=== PATIENT | female | born 1950 | race Caucasian/White ===

== ENCOUNTER 2022-11-27 11:19 | Outpatient (OUT) | payer MEDICARE, SELFPAY ==
--- NOTE | 2022-11-27 11:21 | MM_ITS ---
Patient: DANNY GARCIA Exam Date: 11/27/2022 : 1950 Gender:F Ordering : [facility] Admission #: [id number] Family : Order #: [id number] CLICK HERE TO VIEW EXAM RADIOLOGY REPORT PROCEDURE: MM TOMOSYNTHESIS SCREENING BI COMPARISON: MG MAMM SCREEN 3D JONY CAD, 03/21/2021. MG MAMM SCREEN JONY W CAD, 03/15/2020. MG MAMM SCREEN JONY W CAD, 08/07/2018. MG MAMM SCREEN JONY W CAD, 12/18/2016. INDICATIONS: Screening mammogram Z12.31 Calculator Name NCI Breast Cancer Risk Assessment Tool 5 Year Breast Cancer Risk 2.90% Lifetime Breast Cancer Risk 7.50% Personal Breast Cancer No Personal Ovarian Cancer No Treatments None Family Cancers Grandfather-maternal with lung cancer at age 62. LOCATION: [facility] BREAST COMPOSITION: Scattered areas fibroglandular density. FINDINGS: DIAGNOSTIC CATEGORY 0--INCOMPLETE: NEED ADDITIONAL IMAGING EVALUATION. RIGHT BREAST: No significant suspicious finding. No significant change has occurred. LEFT BREAST: 1.0 cm macrolobular mass within the posterior upper inner quadrant, approximately 9 o'clock. This is stable compared to 202, but has been slowly increasing since 2017. While this favors benign etiology, given its slow increase in size, ultrasound evaluation should be considered for further evaluation. RECOMMENDATIONS: ULTRASOUND: LEFT BREAST PLEASE NOTE: A NORMAL MAMMOGRAM DOES NOT EXCLUDE THE POSSIBILITY OF BREAST CANCER. A CLINICALLY SUSPICIOUS PALPABLE LUMP SHOULD BE BIOPSIED. Dictated by: Som Barnes M.D. on 11/27/2022 at 13:53 Approved by: Som Barnes M.D. on 11/27/2022 at 13:59
== END 2022-11-27 11:20 | disposition home or self-care (01) ==
LOC: MAMMO 11:19
PROVIDERS: PCP Nurse Practitioner Family; Visit Provider Nurse Practitioner Family
DX: Z12.31 Encounter for screening mammogram for malignant neoplasm of breast (principal); Z80.1 Family history of malignant neoplasm of trachea, bronchus and lung; R92.8 Other abnormal and inconclusive findings on diagnostic imaging of breast
CPT/HCPCS: 77063; 77067

== ENCOUNTER 2022-12-10 07:23 | Outpatient (OUT) | payer MEDICARE, SELFPAY ==
--- NOTE | 2022-12-10 08:24 | CA_ITS ---
Patient: DANNY GARCIA Exam Date: 12/10/2022 : 1950 Gender:F Ordering : FUNMI BURNS Admission #: [id number] Family : Order #: [id number] CLICK HERE TO VIEW EXAM ECHOCARDIOGRAM REPORT PROCEDURE: CA ECHO DOPPLER COMPLETE INDICATIONS: Shortness of breath COMPARISON: None. DESCRIPTION: COMPLETE ECHOCARDIOGRAM Real-time transthoracic echocardiography with 2D, M-mode, spectral and color flow Doppler performed. QUALITY: Technical quality was good. LEFT VENTRICLE: Normal chamber size. Mild concentric left ventricular hypertrophy. Global left ventricular systolic function is normal. LV EF: Estimated left ventricular ejection fraction is 55%. DIASTOLIC: Normal diastolic function. ATRIAL SEPTUM: LEFT ATRIUM: Normal chamber size. RIGHT ATRIUM: Normal chamber size. RIGHT VENTRICLE: Normal chamber size. Normal right ventricular systolic function. TRICUSPID VALVE: Normal mobility and thickness. No stenosis with trivial regurgitation. No evidence of pulmonary hypertension. RVSP 28 mmHg MITRAL VALVE: Normal mobility and thickness. No evidence of mitral valve stenosis. Mild mitral annular calcification. No mitral regurgitation. AORTIC VALVE: Normal trileaflet appearance. Thickened aortic valve. Normal leaflet mobility. No evidence of aortic valve stenosis. No aortic regurgitation. AORTIC ROOT: Normal diameter and appearance. PULMONIC VALVE: Normal thickness and mobility. No stenosis. Mild regurgitation. PERICARDIUM: No evidence of pericardial effusion. IVC: Collapses with inspirations. Normal size. PLEURA: CONCLUSION: 1. Mild concentric left ventricular hypertrophy with normal systolic function. LVEF is 55%. 2. Normal right ventricular size and systolic function. 3. Normal diastolic function. 4. No significant valvular dysfunction. 5. Normal right sided pressures. Adult Echocardiography Procedure Report Left Ventricle LVEDD (3.7 - 5.6 cm): 3.77 cm LVESD (2.2 - 4.0 cm): 2.70 cm LVIVS thickness (0.6 - 1.2 cm): 1.16 cm LVPW thickness (0.5 - 1.0 cm): 1.35 cm e': 0.06 m/s E - e': 8.81 LVOT Max Gradient: 2.70 mm[Hg] LVOT Area (cm2): 0.82 m/s Peak Velocity (LVOT): 0.82 m/s Mean Velocity (LVOT): 0.57 m/s LVOT Diameter 1.86 cm Left Ventricular Ejection Fraction: 55 % Left Atrium LA Volume Index (2D A2C): 30.58 ml/m2 Left Atrium Systolic Dimension: 3.78 cm Mitral Valve MV E to A Ratio: 0.75 Mitral Valve A-Wave Peak Velocity: 0.76 m/s Mitral Valve E-Wave Peak Velocity: 0.57 m/s Right Ventricle RV Internal Diastolic Dimension: 3.15 cm Aorta AO Root Diam: 2.97 cm Ascending Ao Diam: 2.90 cm Aortic Valve AoV Area (Peak Marek): 1.73 cm2, 1.73 cm2 AoV Area (VTI): 1.78 cm2, 1.78 cm2 Peak Velocity(Antegrade Flow): 1.29 m/s Peak Gradient(Antegrade Flow): 6.64 mm[Hg] Mean Velocity(Antegrade Flow): 0.89 m/s Mean Gradient(Antegrade Flow): 3.61 mm[Hg] Velocity Time Integral: 32.73 cm Tricuspid Valve Peak Velocity (Regurgitant Flow): 2.45 m/s, 2.51 m/s Pulmonic Valve Mean Gradient: 1.38 mm[Hg], 2.11 mm[Hg] Mean Velocity: 0.54 m/s, 0.68 m/s Peak Velocity: 0.95 m/s Peak Gradient: 2.90 mm[Hg], 4.39 mm[Hg] Right Atrium Right Atrium Systolic Pressure: 40.16 ml, 40.16 ml Dictated by: Frankie Mcwilliams M.D. on 12/11/2022 at 18:11 Approved by: Frankie Mcwilliams M.D. on 12/11/2022 at 18:16
== END 2022-12-10 07:24 | disposition home or self-care (01) ==
LOC: CARD 07:23
PROVIDERS: PCP Nurse Practitioner Family; Visit Provider Internal Medicine Cardiovascular Disease
DX: R06.02 Shortness of breath (principal)
CPT/HCPCS: 93306

== ENCOUNTER 2022-12-10 08:57 | Outpatient (OUT) | payer MEDICARE, SELFPAY ==
--- NOTE | 2022-12-10 09:03 | US_ITS ---
Patient: DANNY GARCIA Exam Date: 12/10/2022 : 1950 Gender:F Ordering : AARON PERR[facility] Admission #: [id number] Family : Order #: [id number] CLICK HERE TO VIEW EXAM RADIOLOGY REPORT PROCEDURE: US BREAST LT LIMITED COMPARISON: MG MAMM SCREEN JONY W CAD, 03/15/2020. MG MAMM SCREEN JONY W CAD, 08/07/2018. MG MAMM SCREEN 3D JONY CAD, 03/21/2021. MG MAMM SCREEN JONY W CAD, 12/18/2016. MM TOMOSYNTHESIS SCREENING BI, 11/27/2022. INDICATIONS: Abnormal Findings Of Breast R92.8 TECHNIQUE: Breast ultrasound was performed, with evaluation focusing only on specific areas of concern. FINDINGS: DIAGNOSTIC CATEGORY 4--SUSPICIOUS FOR MALIGNANCY. FINDING DOES NOT EXHIBIT CLASSIC FINDINGS OF BREAST CANCER: LEFT BREAST: 1.0 x 0.8 x 0.3 cm slightly irregular predominantly hypoechoic mass at the 8 o'clock position 3.1 cm from the nipple. Given its increase in size and appearance as seen on mammography, ultrasound-guided tissue sampling is recommended. RECOMMENDATIONS: ULTRASOUND-GUIDED CORE BIOPSY: LEFT BREAST PLEASE NOTE: A NORMAL ULTRASOUND EXAMINATION DOES NOT EXCLUDE THE POSSIBILITY OF BREAST CANCER. A CLINICALLY SUSPICIOUS PALPABLE LUMP SHOULD BE BIOPSIED. Dictated by: Som Barnes M.D. on 12/10/2022 at 09:34 Approved by: Som Barnes M.D. on 12/10/2022 at 09:43
[2022-12-10 09:32] LABS: Basophils Percent Auto 0.9 % (0.2-2.0); Eosinophils Absolute Auto 0.3 10^3/uL (0.0-0.7); Eosinophils Percent Auto 5.4 % (0.9-7.0); Hematocrit 41.4 % (36.0-48.0); Hemoglobin 12.8 g/dL (12.0-16.0); Immature Granulocytes Abs Auto 0.01 10^3/uL (0.00-0.03); Immature Granulocytes Pct Auto 0.2 % (0.0-0.5); Lymphocytes Percent Auto 20.9 % (20.5-60.0); Mean Corpuscular HGB Conc 30.9 g/dL (29.9-35.2); Mean Corpuscular Hemoglobin 28.2 pg (26.7-34.0); Mean Corpuscular Volume 91.2 fL (81.0-99.0); Mean Platelet Volume 12.8 fL (9.5-13.5); Monocytes Absolute Auto 0.3 10^3/uL (0.3-0.8); Monocytes Percent Auto 6.3 % (1.7-12.0); Neutrophils Absolute Auto 3.1 10^3/uL (1.4-6.5); Neutrophils Percent Auto 66.3 % (43.0-75.0); Platelet Count 193 10^3/uL (150-450); Red Blood Count 4.54 10^6/uL (4.20-5.40); Red Cell Distribution Width 14.4 % (11.0-15.0); White Blood Count 4.6 10^3/uL (4.0-11.0)
[2022-12-10 11:01] LABS: Estimated Average Glucose 108 mg/dL; Glycohemoglobin A1C 5.4 % (4.5-6.2)
[2022-12-10 12:18] LABS: Alanine Aminotransferase 25 U/L (14-59); Albumin Globulin Ratio 0.8; Albumin Level 3.1 g/dL (3.4-5.0); Alkaline Phosphatase 145 U/L (46-116); Anion Gap 11.8; Aspartate Amino Transferase 21 U/L (15-37); BUN Creatinine Ratio 22.1; Bilirubin Total 0.3 mg/dL (0.2-1.0); Calcium 8.7 mg/dL (8.5-10.1); Carbon Dioxide 27.6 mmol/L (21.0-32.0); Chloride 105 mmol/L (98-107); Chol HDL Ratio 3.8; Cholesterol 225 mg/dL (<=200); Estimated GFR (African America >60 (>=60); Estimated GFR (Non-African Ame 52 (>=60); Globulin 3.7 g/dL; Glucose 101 mg/dL (74-106); HDL Cholesterol 59 mg/dL (40-60); Potassium 4.4 mmol/L (3.5-5.1); Sodium 140 mmol/L (136-145); Total Protein 6.8 g/dL (6.4-8.2); Triglycerides 95 mg/dL (<=150)
[2022-12-11 11:23] LABS: Insulin 4.1 uIU/mL (2.6-24.9)
== END 2022-12-10 08:58 | disposition home or self-care (01) ==
LOC: US 08:57
PROVIDERS: PCP Nurse Practitioner Family; Visit Provider Nurse Practitioner Family
DX: Z00.00 Encounter for general adult medical examination without abnormal findings (principal); R06.02 Shortness of breath; E78.5 Hyperlipidemia, unspecified; D50.9 Iron deficiency anemia, unspecified; R73.09 Other abnormal glucose; R92.8 Other abnormal and inconclusive findings on diagnostic imaging of breast; N63.24 Unspecified lump in the left breast, lower inner quadrant
CPT/HCPCS: 36415; 76642; 80053; 80061; 82306; 82607; 83036; 83525; 83540; 85025; 93306

== ENCOUNTER 2022-12-17 13:49 | Day surgery (SDC) | payer MEDICARE, SELFPAY ==
--- NOTE | 2022-12-17 13:55 | US_ITS ---
[address] [address] Patient Name: DANNY GARCIA MRN: [id number] date: 1950 Sex: F Assigned Patient Location: US Current Patient Location: US Accession/Order Number: [id number] Exam Date: 12/17/2022 13:55 Report Date: 12/17/2022 15:17 At the request of: AARON PERRY Procedure: US breast vac bx w/ clip LT EXAMINATION: US breast vac bx w/ clip LT HISTORY: Breast Mass COMPARISON: No relevant comparison available. TECHNIQUE: After obtaining informed consent, ultrasound-guided fine needle aspiration was performed in the usual sterile manner. FINDINGS: IMAGING: Ultrasound. BIOPSY NEEDLE: 14-gauge mammotome LOCATION: Left breast 8:00 1 cm mass SPECIMEN TYPE: 5 core samples. LOCAL ANESTHETIC: 2 cc 1% buffered lidocaine superficial. 6 cc 1% buffered lidocaine with epinephrine deep. COMPLICATIONS: None. LABORATORY: Samples sent for pathology. OTHER: Clip placed and ultrasound position confirmed. PATHOLOGY: Pending. An addendum will be added when results are available. US/US breast vac bx w/ clip LT IMPRESSION: 1. Uneventful ultrasound left breast vacuum assisted core biopsy and microclip placement 2. Pathology results are pending. Electronically authenticated by: JUAN MARTINEZ Date: 12/17/2022 15:17
[2022-12-17 14:00] VITALS: BP 127/97; PULSE 87; O2SAT 97
[2022-12-17] MEDS: LIDOCAINE HCL/EPINEPHRINE 10 ML, SODIUM BICARBONATE 1 MEQ INJ (14:40)
--- NOTE | 2022-12-17 15:05 | MM_ITS ---
Patient: DANNY GARCIA Exam Date: 12/17/2022 : 1950 Gender:F Ordering : AARON PERR[facility] Admission #: [id number] Family : Order #: [id number] CLICK HERE TO VIEW EXAM RADIOLOGY REPORT PROCEDURE: MM POST BIOPSY LT COMPARISON: MM TOMOSYNTHESIS SCREENING BI, 11/27/2022. INDICATIONS: Breast Mass BREAST COMPOSITION: FINDINGS: BIOPSY MARKER: A metallic marker has been placed but appears to be displaced anteriorly from the targeted lesion evidenced by density and air at the biopsy site which corresponds to the targeted lesion seen on prior mammogram. BREAST FINDINGS: Expected post procedural changes. Dictated by: López Rodriguez MD on 12/17/2022 at 15:42 Approved by: López Rodriguez MD on 12/17/2022 at 15:44
== END 2022-12-17 15:10 | disposition home or self-care (01) ==
LOC: US 13:49
PROVIDERS: Radiology Diagnostic Radiology; PCP Nurse Practitioner Family; Visit Provider Nurse Practitioner Family
DX: N63.24 Unspecified lump in the left breast, lower inner quadrant (principal); N62 Hypertrophy of breast; N60.82 Other benign mammary dysplasias of left breast
CPT/HCPCS: 19083; 77065; 88305

== ENCOUNTER 2023-03-25 08:06 | Outpatient (OUT) | payer MEDICARE, SELFPAY ==
[2023-03-25 12:08] LABS: Chol HDL Ratio 3.4; Cholesterol 208 mg/dL (<=200); HDL Cholesterol 62 mg/dL (40-60); Triglycerides 98 mg/dL (<=150); VLDL CHOLESTEROL 19.6 mg/dL
== END 2023-03-25 08:07 | disposition home or self-care (01) ==
PROVIDERS: PCP Nurse Practitioner Family; Visit Provider Internal Medicine Interventional Cardiology
DX: E78.5 Hyperlipidemia, unspecified (principal)
CPT/HCPCS: 36415; 80061

== ENCOUNTER 2023-07-21 11:33 | Outpatient (REF) | payer MEDICARE, SELFPAY ==
--- OUTSIDE RECORDS SUMMARY | 2023-07-21 11:38 | XMS_ITS | CCD ---
Author Name Unknown Address [facility]5 [facility] [address] [place] [id number] Organization [facility] Care Team Providers Care Supervisor Press Room Name Role Phone WILLY, AARON Admitting Unavailable WILLY, AARON Attending Unavailable WILLY, AARON Primary Care Unavailable WILLY, AARON Consulting Unavailable WILLY, AARON Admitting Unavailable WILLY, AARON Attending Unavailable WILLY, AARON Primary Care Unavailable WILLY, AARON Admitting Unavailable WILLY, AARON Attending Unavailable WILLY, AARON Primary Care Unavailable WILLY, AARON Consulting Unavailable WILLY, AARON Admitting Unavailable WILLY, AARON Attending Unavailable WILLY, AARON Primary Care Unavailable ISABELLA, DR JUAN Rucker Consulting Unavailable WILLY, AARON Consulting Unavailable WILLY, AARON Admitting Unavailable WILLY, AARON Attending Unavailable WILLY, AARON Primary Care Unavailable WEST, DR JUAN Rucker Consulting Unavailable WILLY, AARON Consulting Unavailable ALGHOTHANI, MOHAMAD Attending Unavailable ALGHOTHANI, MOHAMAD Attending Unavailable ALGHOTHANI, MOHAMAD Attending Unavailable Allergies Allergy Classification Reported Allergen(s) Allergy Type Date of Onset Reaction(s) Facility (2 sources) Allopurinol Drug Allergy 5 [facility] Repository (1 source) TETANUS VACCINES AND TOXOID; Translations: [TETANUS VACCINES AND TOXOID] Propensity to adverse reactions to drug (disorder) 5 [facility] Repository Problems Active Problems Problem Classification Problem Date Documented Da te Episodic/Chronic Deficiency and other anemia (1 source) Vitamin B12 deficiency anemia, unspecified; Translations: [VITAMIN B12 DEFICIENCY ANEMIA UNS] Onset: 09-12-2021 Episodic Diabetes mellitus without complication (1 source) Other abnormal glucose; Translations: [OTHER ABNORMAL GLUCOSE] Onset: 09-12-2021 Episodic Disorders of lipid metabolism (4 sources) Hyperlipidemia, unspecified; Translations: [HYPERLIPIDEMIA UNSPECIFIED] Onset: 09-10-2021 Chronic Essential hypertension (1 source) Essential (primary) hypertension; Translations: [ESSENTIAL PRIMARY HYPERTENSION] Onset: 09-12-2021 Chronic Malaise and fatigue (1 source) Other fatigue; Translations: [OTHER FATIGUE] Onset: 09-12-2021 Episodic Menopausal disorders (1 source) Other primary ovarian failure; Translations: [OTHER PRIMARY OVARIAN FAILURE] Onset: 09-12-2021 Chronic Other aftercare (1 source) Other terminal superintendent (current) drug therapy; Translations: [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] Onset: 09-12-2021 Episodic Other bone disease and musculoskeletal deformities (1 source) Other specified disorders of bone density and structure, unspecified site; Translations: [OTH D/O BONE DEN STRUCT UNS SITE] Onset: 09-12-2021 Episodic Past or Other Problems Problem Classification Problem Date Documented Da te Episodic/Chronic Nutritional deficiencies (1 source) Deficiency of other specified B group vitamins; Translations: [DEFICIENCY SPEC B GROUP VITAMINS] Onset: 09-28-2020 Episodic Other liver diseases (4 sources) Abnormal levels of other serum enzymes; Translations: [ABNORMAL LEVELS OTHER SERUM ENZYMES] Onset: 10-09-2020 Episodic Other screening for suspected conditions (not mental disorders or infectious disease) (4 sources) Encounter for screening mammogram for malignant neoplasm of breast; Translations: [ENC SCR MAMMO MALIG NEOPLASM BREAST] Onset: 03-21-2021 Episodic Residual codes; unclassified (1 source) Family history of malignant neoplasm of trachea, bronchus and lung; Translations: [FAM HX MALIG NEOPLSM TRACH BRON LNG] Onset: 03-28-2021 Episodic Results Test Name Value Interpretation Reference Range Facility Office Visiton 06-27-2023 Follow-up visit [id number] Danny Cornelius 1950 F Date Provider Department Center 06/27/2023 FUNMI SESAY Family History Problem Relation Age of Onset Coronary artery disease Mother Coronary artery disease Father Family Status - Relation Status Age at Mother Father Level of Service:22042 ID OFFICE/OUTPATIENT ESTABLISHED MOD MDM 30 MIN Normal [facility] Office Visiton 12-30-2022 Follow-up visit [id number] Danny Cornelius 1950 F Date Provider Department Center 12/30/2022 [id number]-ALGHOTHANI, MOHAMAD BH CARD [facility] Family History Problem Relation Age of Onset Coronary artery disease Mother Coronary artery disease Father Family Status - Relation Status Age at Mother Father Level of Service:[id number] ID OFFICE/OUTPATIENT ESTABLISHED LOW MDM 20-29 MIN Reason for Visit and Comments: Follow-up [215334] - Labs and echo, pt refused the sleep study. Normal [facility] Office Visiton 09-16-2022 Follow-up visit [id number] Danny Cornelius Obed 1950 F Date Provider Department Center 09/16/2022 [id number] BURNS [facility] Family History Problem Relation Age of Onset Coronary artery disease Mother Coronary artery disease Father Family Status - Relation Status Age at Mother Father Level of Service:61839 ID OFFICE/OUTPATIENT ESTABLISHED MOD MDM 30-39 MIN Reason for Visit and Comments: Follow-up [[id number]] - 6 month follow up Normal [facility] INSULINon 09-11-2021 Insulin 6.2 uIU/mL Normal 2.6-24.9 [facility] Comment on above: Performed By: #### I NSULIN #### [facility] [address] [place] [address] Dr. Gadiel Kumar CBC AUTO DIFFon 09-10-2021 BASO # 0.0 103/ul Normal 0.0-0.1 [facility] Comment on above: Performed By: #### C MP, LIPID, T7, TSH #### [facility] [address] [place] [address] Dr. Gadiel Kumar Basophils/100 WBC (Bld) 0.8 % Normal 0.2-2.0 [facility] Comment on above: Performed By: #### C MP, LIPID, T7, TSH #### [facility] [address] [place] [address] Dr. Gadiel Kumar EO # 0.3 103/ul Normal 0.0-0.7 [facility] Comment on above: Performed By: #### C MP, LIPID, T7, TSH #### [facility] [address] [place] [address] Dr. Gadiel Kumar Eosinophils/100 WBC (Bld) 5.3 % Normal 0.9-7.0 [facility] Comment on above: Performed By: #### C MP, LIPID, T7, TSH #### [facility] [address] [place] [address] Dr. Gadiel Kumar Erythrocyte distribution width (RBC) [Ratio] 14.0 % Normal 11.0-15.0 [facility] Comment on above: Performed By: #### C MP, LIPID, T7, TSH #### [facility] [address] [place] [address] Dr. Gadiel Kumar Hematocrit (Bld) [Volume fraction] 39.1 % Normal 36.0-48.0 [facility] Comment on above: Performed By: #### C MP, LIPID, T7, TSH #### [facility] [address] [place] [address] Dr. Gadiel Kumar Hemoglobin (Bld) [Mass/Vol] 11.7 g/dL Critically low 12.0-16.0 [facility] Comment on above: Performed By: #### C MP, LIPID, T7, TSH #### [facility] [address] [place] [address] Dr. Gadiel Kumar IG # 0.02 10e3/ul Normal 0.00-0.03 [facility] Comment on above: Performed By: #### C MP, LIPID, T7, TSH #### [facility] [address] [place] [address] Dr. Gadiel Kumar IG % 0.4 % Normal 0.0-0.5 [facility] Comment on above: Performed By: #### C MP, LIPID, T7, TSH #### [facility] [address] [place] [address] Dr. Gadiel Kumar LYMPH # 1.1 103/ul Critically low 1.2-3.8 [facility] Comment on above: Performed By: #### C MP, LIPID, T7, TSH #### [facility] [address] [place] [address] Dr. Gadiel Kumar Lymphocytes/100 WBC (Bld) 21.3 % Normal 20.5-60.0 [facility] Comment on above: Performed By: #### C MP, LIPID, T7, TSH #### [facility] [address] [address] [address] Gadiel Kumar MANUAL DIFF REQ NO Normal [facility] [place] Comment on above: Performed By: #### C MP, LIPID, T7, TSH #### [facility] [address] [place] [address] Dr. Gadiel Kumar MCH (RBC) [Entitic mass] 28.3 pg Normal 26.7-34.0 [facility] Comment on above: Performed By: #### C MP, LIPID, T7, TSH #### [facility] [address] [place] [address] Dr. Gadiel Kumar MCHC (RBC) [Mass/Vol] 29.9 g/dL Normal 29.9-35.2 [facility] Comment on above: Performed By: #### C MP, LIPID, T7, TSH #### [facility] [address] [place] [address] Dr. Gadiel Kumar MCV (RBC) [Entitic vol] 94.4 fL Normal 81.0-99.0 [facility] Comment on above: Performed By: #### C MP, LIPID, T7, TSH #### [facility] [address] [address] [address] Gadiel Kumar MONO # 0.3 103/ul Normal 0.3-0.8 [facility] Comment on above: Performed By: #### C MP, LIPID, T7, TSH #### [facility] [address] [place] [address] Dr. Gadiel Kumar Monocytes/100 WBC (Bld) 6.7 % Normal 1.7-12.0 [facility] Comment on above: Performed By: #### C MP, LIPID, T7, TSH #### [facility] [address] [place] [address] Dr. Gadiel Kumar NEUT # 3.2 103/ul Normal 1.4-6.5 [facility] Comment on above: Performed By: #### C MP, LIPID, T7, TSH #### [facility] [address] [place] [address] Dr. Gadiel Kumar Neutrophils/100 WBC (Bld) 65.5 % Normal 43.0-75.0 [facility] Comment on above: Performed By: #### C MP, LIPID, T7, TSH #### [facility] [address] [place] [address] Dr. Gadiel Kumar Platelet mean volume (Bld) [Entitic vol] 12.5 fL Normal 9.5-13.5 [facility] Comment on above: Performed By: #### C MP, LIPID, T7, TSH #### [facility] [address] [address] [address] Gadiel Kumar PLT 160 103/ul Normal 150-450 [facility] Comment on above: Performed By: #### C MP, LIPID, T7, TSH #### [facility] [address] [place] [address] Dr. Gadiel Kumar RBC 4.14 106/ul Critically low 4.20-5.40 [facility] Comment on above: Performed By: #### C MP, LIPID, T7, TSH #### [facility] [address] [place] [address] Dr. Gadiel Kumar WBC 4.9 103/ul Normal 4.0-11.0 [facility] Comment on above: Performed By: #### C MP, LIPID, T7, TSH #### [facility] [address] [place] [address] Dr. Gadiel Kumar FREE THYROXINE INDEX T7on FTI 2.44 Normal [facility] Comment on above: Performed By: #### C MP, LIPID, T7, TSH #### [facility] [address] [place] [address] Dr. Gadiel Kumar T3U 33.0 % Normal 23.5-40.5 [facility] Comment on above: Performed By: #### C MP, LIPID, T7, TSH #### [facility] [address] [place] [address] Dr. Gadiel Kumar T4 [Mass/Vol] 7.40 ug/dL Normal 4.80-13.90 [facility] Comment on above: Performed By: #### C MP, LIPID, T7, TSH #### [facility] [address] [address] [address] Gadiel Kumar GLYCOHEMOGLOBIN A1Con 2021 ADA RECOMMENDATION SEE BELOW Normal [facility] Comment on above: Result Comment: ADA RECOMMENDED LIMIT 4.0 - 6.0 ADA THERAPEUTIC TARGET < 7.0 ACTION SUGGESTED > 7.0 Performed By: #### C MP, LIPID, T7, TSH #### [facility] [address] [address] [address] Gadiel Kumar Glucose [Mass/Vol] 105 mg/dL Normal [facility] Comment on above: Performed By: #### C MP, LIPID, T7, TSH #### [facility] [address] [address] [address] Gadiel Kumar HbA1c (Bld) [Mass fraction] 5.3 % Normal 4.5-6.2 [facility] Comment on above: Performed By: #### C MP, LIPID, T7, TSH #### [facility] [address] [place] [address] Dr. Gadiel Kumar IRONon 09-10-2021 Iron [Mass/Vol] 59.0 ug/dL Normal 50.0-170.0 [facility] Comment on above: Performed By: #### C MP, LIPID, T7, TSH #### [facility] [address] [place] [address] Dr. Gadiel Kumar LIPID PROFILEon 09-10-2021 CHOL-HDL RATIO NORM SEE BELOW Normal [facility] Comment on above: Result Comment: 3.3 - 4.4 LOW RISK 4.4 - 7.1 AVERAGE RISK 7.1 - 11.0 MODERATE RISK >11.0 HIGH RISK Performed By: #### C MP, LIPID, T7, TSH #### [facility] [address] [address] [address] Gadiel Kumar Cholesterol [Mass/Vol] 193 mg/dL Normal <=200 [facility] Comment on above: Performed By: #### C MP, LIPID, T7, TSH #### [facility] [address] [address] [address] Gadiel Kumar Cholesterol in HDL [Mass/Vol] 55 mg/dL Normal 40-60 [facility] Comment on above: Performed By: #### C MP, LIPID, T7, TSH #### [facility] [address] [address] [address] Gadiel Kumar Cholesterol in LDL [Mass/Vol] 120.8 mg/dL Normal [facility] Comment on above: Performed By: #### C MP, LIPID, T7, TSH #### [facility] [address] [address] [address] Gadiel Kumar Cholesterol.total/Ch olesterol in HDL [Mass ratio] 3.5 {ratio} Normal [facility] Comment on above: Performed By: #### C MP, LIPID, T7, TSH #### [facility] [address] [address] [address] Gadiel Kumar HDL NORMAL > or = 60 mg/dl - LO W CARDIOVASCULAR RISK <40 mg/dl - HIGH CARDIOVASCULAR RISK Normal [facility] Comment on above: Performed By: #### C MP, LIPID, T7, TSH #### [facility] [address] [address] [address] Gadiel Kumar LDL CALC NORMAL SEE BELOW Normal [facility] Comment on above: Result Comment: <100 mg/dl OPTIMAL 100 - 129 mg/dl NEAR OR ABOVE OPTIMAL 130 - 159 mg/dl BORDERLINE HIGH 160 - 189 mg/dl HIGH >190 mg/dl VERY HIGH Performed By: #### C MP, LIPID, T7, TSH #### [facility] [address] [address] [address] Gadiel Kumar Triglyceride [Mass/Vol] 86 mg/dL Normal <=150 [facility] Comment on above: Performed By: #### C MP, LIPID, T7, TSH #### [facility] [address] [address] [address] Gadiel Kumar VLDL CALC 17.2 mg/dL Normal [facility] Comment on above: Performed By: #### C MP, LIPID, T7, TSH #### [facility] [address] [address] [address] Gadiel Kumar PROF 14(COMP METB)on 022 Albumin [Mass/Vol] 2.8 g/dL Critically low 3.4-5.[address] [facility] Comment on above: Performed By: #### C MP, LIPID, T7, TSH #### [facility] [address] [place] [address] Dr. Gadiel Kumar Albumin/Globulin [Mass ratio] 0.9 {ratio} Normal [facility] Comment on above: Performed By: #### C MP, LIPID, T7, TSH #### [facility] [address] [place] [address] Dr. Gadiel Kumar ALP [Catalytic activity/Vol] 135 U/L Critically high 46-116 [facility] Comment on above: Performed By: #### C MP, LIPID, T7, TSH #### [facility] [address] [place] [address] Dr. Gadiel Kumar ALT [Catalytic activity/Vol] 22 U/L Normal 14-59 [facility] Comment on above: Performed By: #### C MP, LIPID, T7, TSH #### [facility] [address] [place] [address] Dr. Gadiel Kumar Anion gap [Moles/Vol] 11.0 mmol/L Normal [facility] Comment on above: Performed By: #### C MP, LIPID, T7, TSH #### [facility] [address] [place] [address] Dr. Gadiel Kumar AST [Catalytic activity/Vol] 16 U/L Normal 15-37 [facility] Comment on above: Performed By: #### C MP, LIPID, T7, TSH #### [facility] [address] [place] [address] Dr. Gadiel Kumar Bilirubin [Mass/Vol] 0.3 mg/dL Normal 0.2-1.0 [facility] Comment on above: Performed By: #### C MP, LIPID, T7, TSH #### [facility] [address] [place] [address] Dr. Gadiel Kumar Calcium [Mass/Vol] 8.2 mg/dL Critically low 8.5-10.[address] [facility] Comment on above: Performed By: #### C MP, LIPID, T7, TSH #### [facility] [address] [address] [address] Gadiel Kumar Chloride [Moles/Vol] 107 mmol/L Normal 98-107 [facility] Comment on above: Performed By: #### C MP, LIPID, T7, TSH #### [facility] [address] [address] [address] Gadiel Kumar CO2 [Moles/Vol] 27.8 mmol/L Normal 21.0-32.0 [facility] Comment on above: Performed By: #### C MP, LIPID, T7, TSH #### [facility] [address] [address] [address] Gadiel Kumar Creatinine [Mass/Vol] 0.72 mg/dL Normal 0.55-1.02 [facility] Comment on above: Performed By: #### C MP, LIPID, T7, TSH #### [facility] [address] [address] [address] Gadiel Kumar EGFR-AF GREEK >60 Normal >=60 [facility] Comment on above: Performed By: #### C MP, LIPID, T7, TSH #### [facility] [address] [address] [address] Gadiel Kumar EGFR-NON AF GREEK >60 Normal >=60 [facility] Comment on above: Performed By: #### C MP, LIPID, T7, TSH #### [facility] [address] [address] [address] Gadiel Kumar Globulin (S) [Mass/Vol] 3.2 g/dL Normal [facility] Comment on above: Performed By: #### C MP, LIPID, T7, TSH #### [facility] [address] [address] [address] Gadiel Kumar Glucose [Mass/Vol] 88 mg/dL Normal 74-106 [facility] Comment on above: Performed By: #### C MP, LIPID, T7, TSH #### [facility] [address] [address] [address] Gadiel Kumar Potassium [Moles/Vol] 3.8 mmol/L Normal 3.5-5.1 [facility] Comment on above: Performed By: #### C MP, LIPID, T7, TSH #### [facility] [address] [place] [address] Dr. Gadiel Kumar Protein [Mass/Vol] 6.0 g/dL Critically low 6.1-8.[address] [facility] Comment on above: Performed By: #### C MP, LIPID, T7, TSH #### [facility] [address] [place] [address] Dr. Gadiel Kumar Sodium [Moles/Vol] 142 mmol/L Normal 136-145 [facility] Comment on above: Performed By: #### C MP, LIPID, T7, TSH #### [facility] [address] [place] [address] Dr. Gadiel Kumar Urea nitrogen [Mass/Vol] 13.0 mg/dL Normal 7.0-18.0 [facility] Comment on above: Performed By: #### C MP, LIPID, T7, TSH #### [facility] [address] [place] [address] Dr. Gadiel Kumar Urea nitrogen/Creatinine [Mass ratio] 18.1 mg/mg Normal [facility] Comment on above: Performed By: #### C MP, LIPID, T7, TSH #### [facility] [address] [place] [address] Dr. Gadiel Kumar TSHon 09-10-2021 TSH 4.603 uIU/mL Normal 0.470-4.680 [facility] Comment on above: Performed By: #### C MP, LIPID, T7, TSH #### [facility] [address] [place] [address] Dr. Gadiel Kumar TSH RANGE SEE BELOW Normal [facility] Comment on above: Result Comment: <0.3 4 UIU/ml HYPERTHYROID 0.34-5.60 UIU/ml EUTHYROID >5.60 UIU/ml HYPOTHYROID Performed By: #### C MP, LIPID, T7, TSH #### [facility] [address] [place] [address] Dr. Gadiel Kumar VITAMIN B12on 09-10-2021 Cobalamin (Vitamin B12) [Mass/Vol] 517.0 pg/mL Normal 239.0-931.0 [facility] Comment on above: Performed By: #### C MP, LIPID, T7, TSH #### [facility] [address] [address] [address] Gadiel Kumar XR DEXA BONE DENSITYon 09-10 XR DEXA BONE DENSITY EXAMINATION: XR DEX A BONE DENSITY, 09/10/2021 7:38 AM EDT HISTORY: Primary ovarian failure COMPARISON: 2018 TECHNIQUE: Dual-energy X-ray absorptiometry (DEXA) bone density study performed for the axial skeleton. FINDINGS: Bone mineral density AP spine L1-L4 measures 1.092 g/sq cm. T score -0.7. WHO classification: Normal. Lowest bone mineral density of the left femoral neck measures 0.74 g/sq cm. T score -2.3. WHO classification: Osteopenia IMPRESSION: Osteopenia. Moderate fracture risk Electronically authenticated by: JUAN MARTINEZ Date: 2021-09-10 08:[address] [facility] MAMM SCREEN 3D JONY CADon 03-21-2021 MG MAMM SCREEN 3D JONY CAD Patient: DANNY CORNELIUS Exam Date: 03/21/2021 : 1950 Gender:F Ordering : [facility]ON [facility] Admission #: [id number] Family : Order #: [id number] CLICK HERE TO VIEW EXAM RADIOLOGY REPORT PROCEDURE: MAMMOGRAM SCREENING 3D BILATERAL CAD COMPARISON: MG MAMM SCREEN JONY W CAD, 08/07/2018. MG MAMM SCREEN JONY W CAD, 03/15/2020. INDICATIONS: Screening mammography Calculator Name NCI Breast Cancer Risk Assessment Tool 5 Year Breast Cancer Risk 2.90% Lifetime Breast Cancer Risk 8.30% Personal Breast Cancer No Personal Ovarian Cancer No Treatments None Family Cancers Grandfather-maternal with lung cancer at age 62. LOCATION: [facility] BREAST COMPOSITION: Scattered areas fibroglandular density. FINDINGS: DIAGNOSTIC CATEGORY 1--NEGATIVE NO CHANGE FROM COMPARISON ASSESSMENT. Scattered benign-appearing nodules are present. Scattered benign-appearing calcifications are present. Scattered benign-appearing lymph nodes are present. RIGHT BREAST: No significant suspicious finding. LEFT BREAST: No significant suspicious finding. RECOMMENDATIONS: ROUTINE MAMMOGRAM AND CLINICAL EVALUATION IN 12 MONTHS. PLEASE NOTE: A NORMAL MAMMOGRAM DOES NOT EXCLUDE THE POSSIBILITY OF BREAST CANCER. A CLINICALLY SUSPICIOUS PALPABLE LUMP SHOULD BE BIOPSIED. Dictated by: Juan Martinez MD on 03/21/2021 at 13:22 Approved by: Juan Martinez MD on 03/21/2021 at 13:36 Normal [facility] GGTon 10-09-2020 Gamma glutamyl transferase [Catalytic activity/Vol] 13 U/L Normal 12-43 [facility] Comment on above: Performed By: #### C MP, LIPID, T7, TSH #### [facility] [address] [place] [address] Dr. Gadiel Kumar PROF 14(COMP METB)on 021 Albumin [Mass/Vol] 3.2 g/dL Critically low 3.5-5.0 [facility] Comment on above: Performed By: #### C MP #### [facility] [address] [place], [place] [id number] Katherine Genia Albumin/Globulin [Mass ratio] 0.8 {ratio} Normal [facility] Comment on above: Performed By: #### C MP #### [facility] [address] [place], [place] [id number] Katherine Genia ALP [Catalytic activity/Vol] 166 U/L Critically high 38-126 [facility] Comment on above: Performed By: #### C MP #### [facility] [address] [place], [place] [id number] Katherine Genia ALT [Catalytic activity/Vol] 22 U/L Normal 9-52 [facility] Comment on above: Performed By: #### C MP #### [facility] [address] [place], [place] [id number] Katherine Genia Anion gap [Moles/Vol] 12.1 mmol/L Normal [facility] Comment on above: Performed By: #### C MP #### [facility] [address] [place], [place] [id number] Katherine Genia AST [Catalytic activity/Vol] 22 U/L Normal 14-36 [facility] Comment on above: Performed By: #### C MP #### [facility] [address] [place], [place] [id number] Katherine Genia Bilirubin [Mass/Vol] 0.3 mg/dL Normal 0.2-1.3 [facility] Comment on above: Performed By: #### C MP #### [facility] [address] [address] Katherine Genia Calcium [Mass/Vol] 9.0 mg/dL Normal 8.4-10.2 [facility] Comment on above: Performed By: #### C MP #### [facility] [address] [place] [address] Katherine Genia Chloride [Moles/Vol] 104 mmol/L Normal 98-107 [facility] Comment on above: Performed By: #### C MP #### [facility] [address] [place] [address] Katherine Genia CO2 [Moles/Vol] 27.1 mmol/L Normal 22.0-30.0 [facility] Comment on above: Performed By: #### C MP #### [facility] [address] [place] [address] Katherine Genia Creatinine [Mass/Vol] 0.98 mg/dL Normal 0.52-1.04 [facility] Comment on above: Performed By: #### C MP #### [facility] [address] [place] [address] Katherine Genia EGFR-AF GREEK >60 Normal >=60 [facility] Comment on above: Performed By: #### C MP #### [facility] [address] [place] [address] Katherine Genia EGFR-NON AF GREEK 56 mL/min/1.73m2 Critically low >=60 [facility] Comment on above: Performed By: #### C MP #### [facility] [address] [place] [address] Katherine Genia Globulin (S) [Mass/Vol] 4.1 g/dL Normal [facility] Comment on above: Performed By: #### C MP #### [facility] [address] [place] [address] Katherine Genia Glucose [Mass/Vol] 103 mg/dL Normal 74-106 [facility] Comment on above: Performed By: #### C MP #### [facility] [address] [place], [place] [address] Katherine Genia Potassium [Moles/Vol] 4.2 mmol/L Normal 3.4-5.0 [facility] Comment on above: Performed By: #### C MP #### [facility] [address] [place], [place] [address] Katherine Genia Protein [Mass/Vol] 7.3 g/dL Normal 6.1-8.2 [facility] Comment on above: Performed By: #### C MP #### [facility] [address] [place], [place] [address] Katherine Genia Sodium [Moles/Vol] 139 mmol/L Normal 137-145 [facility] Comment on above: Performed By: #### C MP #### [facility] [address] [place], [place] [address] Katherine Genia Urea nitrogen [Mass/Vol] 15.0 mg/dL Normal 7.0-17.0 [facility] Comment on above: Performed By: #### C MP #### [facility] [address] [place], [place] [address] Katherine Genia Urea nitrogen/Creatinine [Mass ratio] 15.3 mg/mg Normal [facility] Comment on above: Performed By: #### C MP #### [facility] [address] [place], [place] [address] Katherine Genia VITAMIN B12on 10-09-2020 Cobalamin (Vitamin B12) [Mass/Vol] 787.0 pg/mL Normal 239.0-931.0 [facility] Comment on above: Performed By: #### C MP, LIPID, T7, TSH #### [facility] [address] [place], [place] [address] Dr. Gadiel Kumar PROF 14(COMP METB)on 021 Albumin [Mass/Vol] 3.2 g/dL Critically low 3.5-5.[address] [facility] Comment on above: Performed By: #### C MP #### [facility] [address] [place] [phone] Katherine Genia Albumin/Globulin [Mass ratio] 0.8 {ratio} Normal [facility] Comment on above: Performed By: #### C MP #### [facility] [address] [place] [phone] Katherine Genia ALP [Catalytic activity/Vol] 166 U/L Critically high 38-126 [facility] Comment on above: Performed By: #### C MP #### [facility] [address] [place] [phone] Katherine Genia ALT [Catalytic activity/Vol] 26 U/L Normal 9-52 [facility] Comment on above: Performed By: #### C MP #### [facility] [address] [place] [phone] Katherine Genia Anion gap [Moles/Vol] 13.5 mmol/L Normal [facility] Comment on above: Performed By: #### C MP #### [facility] [address] [place] [address] Katherine Genia AST [Catalytic activity/Vol] 20 U/L Normal 14-36 [facility] Comment on above: Performed By: #### C MP #### [facility] [address] [place], [place] [phone] Katherine Genia Bilirubin [Mass/Vol] 0.5 mg/dL Normal 0.2-1.3 [facility] Comment on above: Performed By: #### C MP #### [facility] [address] [place], [place] [phone] Katherine Genia Calcium [Mass/Vol] 8.9 mg/dL Normal 8.4-10.2 [facility] Comment on above: Performed By: #### C MP #### [facility] [address] [place], [place] [phone] Katherine Genia Chloride [Moles/Vol] 104 mmol/L Normal 98-107 [facility] Comment on above: Performed By: #### C MP #### [facility] [address] [place], [place] [address] Katherine Genia CO2 [Moles/Vol] 27.2 mmol/L Normal 22.0-30.0 [facility] Comment on above: Performed By: #### C MP #### [facility] [address] [place] [phone] Katherine Genia Creatinine [Mass/Vol] 0.99 mg/dL Normal 0.52-1.04 [facility] Comment on above: Performed By: #### C MP #### [facility] [address] [place], [place] [address] Katherine Genia EGFR-AF GREEK >60 Normal >=60 [facility] Comment on above: Performed By: #### C MP #### [facility] [address] [place] [phone] Katherine Gneia EGFR-NON AF GREEK 55 mL/min/1.73m2 Critically low >=60 [facility] Comment on above: Performed By: #### C MP #### [facility] [address] [place] [phone] Katherine Genia Globulin (S) [Mass/Vol] 4.1 g/dL Normal [facility] Comment on above: Performed By: #### C MP #### [facility] [address] [place] [phone] Katherine Genia Glucose [Mass/Vol] 93 mg/dL Normal 74-106 [facility] Comment on above: Performed By: #### C MP #### [facility] [address] [place] [address] Katherine Genia Potassium [Moles/Vol] 3.7 mmol/L Normal 3.4-5.0 [facility] Comment on above: Performed By: #### C MP #### [facility] [address] [place] [phone] Katherine Genia Protein [Mass/Vol] 7.3 g/dL Normal 6.1-8.2 [facility] Comment on above: Performed By: #### C MP #### [facility] [address] [place] [phone] Katherine Genia Sodium [Moles/Vol] 141 mmol/L Normal 137-145 [facility] Comment on above: Performed By: #### C MP #### [facility] [address] [place] [address] Katherine Genia Urea nitrogen [Mass/Vol] 26.0 mg/dL Critically high 7.0-17.0 [facility] Comment on above: Performed By: #### C MP #### [facility] [address] [place] [address] Katherine Cormier Urea nitrogen/Creatinine [Mass ratio] 26.3 mg/mg Normal [facility] Comment on above: Performed By: #### C MP #### [facility] [address] [place] [address] Katherine Cormier VITAMIN B12on 09-22-2020 Cobalamin (Vitamin B12) [Mass/Vol] 652.0 pg/mL Normal 239.0-931.0 [facility] Comment on above: Performed By: #### V ITB12 #### [facility] [address] [place], [place] [address] Katherine Cormier CBC and Differentialon 04-23 Abs Baso 0.05 k/uL Normal <0.11 [facility] Comment on above: Performed By: #### H BA1C, VITD, CBCDIF, CMP, LIPB, TSH, T4FTI, IRON, B12, SERFOL, INSULN #### [facility] [employer] [address] [place] [address] #### T3U #### [facility] [address] [place] [address] [phone] Abs Galax 0.38 k/uL Normal <0.87 [facility] Comment on above: Performed By: #### H BA1C, VITD, CBCDIF, CMP, LIPB, TSH, T4FTI, IRON, B12, SERFOL, INSULN #### [facility] [employer] [address] [place] [address] #### T3U #### [facility] [address] [place] [address] [phone] Abs Neut 4.22 k/uL Normal 1.45-7.50 [facility] Comment on above: Performed By: #### H BA1C, VITD, CBCDIF, CMP, LIPB, TSH, T4FTI, IRON, B12, SERFOL, INSULN #### [facility] [address] [place] [address] #### T3U #### [facility] [address] [place] [address] [phone] Absolute nRBC <0.01 Normal <0.01 [facility] Comment on above: Performed By: #### H BA1C, VITD, CBCDIF, CMP, LIPB, TSH, T4FTI, IRON, B12, SERFOL, INSULN #### [place] [phone] [place] [phone] #### T3U #### [facility] [address], [place] [id number] [phone] Basophils/100 WBC (Bld) 0.9 % Normal [facility] Comment on above: Performed By: #### H BA1C, VITD, CBCDIF, CMP, LIPB, TSH, T4FTI, IRON, B12, SERFOL, INSULN #### [place] [address] [place] [phone] #### T3U #### [facility] [address] [place] [address] [phone] DTYPE Auto Diff Normal [facility] Comment on above: Performed By: #### H BA1C, VITD, CBCDIF, CMP, LIPB, TSH, T4FTI, IRON, B12, SERFOL, INSULN #### [place] [phone] [place] [phone] #### T3U #### [facility] [address] [place] [address] [phone] Eosinophils (Bld) [#/Vol] 0.20 10*3/uL Normal <0.46 [facility] Comment on above: Performed By: #### H BA1C, VITD, CBCDIF, CMP, LIPB, TSH, T4FTI, IRON, B12, SERFOL, INSULN #### [address] [address] #### T3U #### [facility] [address] [place] [address] [phone] Eosinophils/100 WBC (Bld) 3.5 % Normal [facility] Comment on above: Performed By: #### H BA1C, VITD, CBCDIF, CMP, LIPB, TSH, T4FTI, IRON, B12, SERFOL, INSULN #### [place] [phone] #### T3U #### [facility] [address] [place] [address] [phone] Erythrocyte distribution width (RBC) [Ratio] 13.7 % Normal 11.5-15.0 [facility] Comment on above: Performed By: #### H BA1C, VITD, CBCDIF, CMP, LIPB, TSH, T4FTI, IRON, B12, SERFOL, INSULN #### [place] [phone] #### T3U #### [facility] [address] [place] [address] [phone] Hematocrit (Bld) [Volume fraction] 43.5 % Normal 36.0-46.0 [facility] Comment on above: Performed By: #### H BA1C, VITD, CBCDIF, CMP, LIPB, TSH, T4FTI, IRON, B12, SERFOL, INSULN #### [place] [phone] #### T3U #### [facility] [address] [place] [address] [phone] Hemoglobin (Bld) [Mass/Vol] 13.2 g/dL Normal 11.5-15.5 [facility] Comment on above: Performed By: #### H BA1C, VITD, CBCDIF, CMP, LIPB, TSH, T4FTI, IRON, B12, SERFOL, INSULN #### [address] [address] #### T3U #### [facility] [address] [place] [address] [phone] Lymphocytes (Bld) [#/Vol] 0.91 10*3/uL Low 1.00-4.00 [facility] Comment on above: Performed By: #### H BA1C, VITD, CBCDIF, CMP, LIPB, TSH, T4FTI, IRON, B12, SERFOL, INSULN #### [place] [phone] #### T3U #### [address] [address] [phone] Lymphocytes/100 WBC (Bld) 15.7 % Normal [facility] Comment on above: Performed By: #### H BA1C, VITD, CBCDIF, CMP, LIPB, TSH, T4FTI, IRON, B12, SERFOL, INSULN #### [place] [phone] #### T3U #### [address] [address] [phone] MCH (RBC) [Entitic mass] 28.2 pG Normal 26.0-34.0 [facility] Comment on above: Performed By: #### H BA1C, VITD, CBCDIF, CMP, LIPB, TSH, T4FTI, IRON, B12, SERFOL, INSULN #### [address] [address] #### T3U #### [address] [address] [phone] MCHC (RBC) [Mass/Vol] 30.3 g/dL Low 30.5-36.0 [facility] Comment on above: Performed By: #### H BA1C, VITD, CBCDIF, CMP, LIPB, TSH, T4FTI, IRON, B12, SERFOL, INSULN #### [facility] [address] [place] [phone] #### T3U #### [facility] [address] [place] [phone] MCV (RBC) [Entitic vol] 92.9 fL Normal 80.0-100.0 [facility] Comment on above: Performed By: #### H BA1C, VITD, CBCDIF, CMP, LIPB, TSH, T4FTI, IRON, B12, SERFOL, INSULN #### [place] [address] [place] [phone] #### T3U #### [facility] [address] [place] [phone] Monocytes/100 WBC (Bld) 6.6 % Normal [facility] Comment on above: Performed By: #### H BA1C, VITD, CBCDIF, CMP, LIPB, TSH, T4FTI, IRON, B12, SERFOL, INSULN #### [place] [address] [place] [phone] #### T3U #### [facility] [address] [place] [phone] Neutrophils/100 WBC (Bld) 73.3 % Normal [facility] Comment on above: Performed By: #### H BA1C, VITD, CBCDIF, CMP, LIPB, TSH, T4FTI, IRON, B12, SERFOL, INSULN #### [facility] [address] [place] [phone] #### T3U #### [facility] [address] [place] [phone] NRBCs 0.0 /100 WBC Normal 0 [facility] Comment on above: Performed By: #### H BA1C, VITD, CBCDIF, CMP, LIPB, TSH, T4FTI, IRON, B12, SERFOL, INSULN #### [place] [address] [place] [phone] #### T3U #### [facility] [address] [place] [address] [phone] Platelet mean volume (Bld) [Entitic vol] 14.1 fL High 9.0-12.7 [facility] Comment on above: Performed By: #### H BA1C, VITD, CBCDIF, CMP, LIPB, TSH, T4FTI, IRON, B12, SERFOL, INSULN #### [place] [phone] #### T3U #### [facility] [address] [place] [address] [phone] Platelets (Bld) [#/Vol] 177 10*3/uL Normal 150-400 [facility] Comment on above: Result Comment: Resu lt checked and verified No clot detected. Performed By: #### H BA1C, VITD, CBCDIF, CMP, LIPB, TSH, T4FTI, IRON, B12, SERFOL, INSULN #### [place] [phone] #### T3U #### [facility] [address] [place] [address] [phone] RBC (Bld) [#/Vol] 4.68 10*6/uL Normal 3.90-5.20 [facility] Comment on above: Performed By: #### H BA1C, VITD, CBCDIF, CMP, LIPB, TSH, T4FTI, IRON, B12, SERFOL, INSULN #### [place] [phone] #### T3U #### [facility] [address] [place] [address] [phone] WBC (Bld) [#/Vol] 5.78 10*3/uL Normal 3.70-11.00 [facility] Comment on above: Performed By: #### H BA1C, VITD, CBCDIF, CMP, LIPB, TSH, T4FTI, IRON, B12, SERFOL, INSULN #### [place] [address] [place] [phone] #### T3U #### [facility] [address] [place] [address] [phone] Ferritinon 04-23-2019 Ferritin [Mass/Vol] 98.8 ng/mL Normal 14.7-205.1 [facility] Comment on above: Performed By: #### H BA1C, VITD, CBCDIF, CMP, LIPB, TSH, T4FTI, IRON, B12, SERFOL, INSULN #### [place] [phone] #### T3U #### [address] [address] [phone] Iron and TIBCon 04-23-2019 Iron [Mass/Vol] 64 ug/dL Normal 41-186 [facility] Comment on above: Performed By: #### H BA1C, VITD, CBCDIF, CMP, LIPB, TSH, T4FTI, IRON, B12, SERFOL, INSULN #### [place] [phone] #### T3U #### [address] [address] [phone] TIBC 318 ug/dL Normal 232-386 [facility] Comment on above: Performed By: #### H BA1C, VITD, CBCDIF, CMP, LIPB, TSH, T4FTI, IRON, B12, SERFOL, INSULN #### [place] [phone] #### T3U #### [address] [address] [phone] Transferrin Saturatn 20 % Normal 15-57 [facility] Comment on above: Performed By: #### H BA1C, VITD, CBCDIF, CMP, LIPB, TSH, T4FTI, IRON, B12, SERFOL, INSULN #### [place] [phone] #### T3U #### [facility] [address] [place] [address] [phone] Vitamin B12on 04-23-2019 Cobalamin (Vitamin B12) [Mass/Vol] 396 pg/mL Normal 232-1245 [facility] Comment on above: Performed By: #### H BA1C, VITD, CBCDIF, CMP, LIPB, TSH, T4FTI, IRON, B12, SERFOL, INSULN #### [place] [phone] #### T3U #### [address] [address] [phone] CBC and Differentialon 04-06 Abs Baso 0.04 k/uL Normal <0.11 [facility] Comment on above: Performed By: #### H BA1C, VITD, CBCDIF, CMP, LIPB, TSH, T4FTI, IRON, B12, SERFOL, INSULN #### [place] [phone] #### T3U #### [address] [address] [phone] Abs Galax 0.32 k/uL Normal <0.87 [facility] Comment on above: Performed By: #### H BA1C, VITD, CBCDIF, CMP, LIPB, TSH, T4FTI, IRON, B12, SERFOL, INSULN #### [place] [phone] #### T3U #### [address] [address] [phone] Abs Neut 3.40 k/uL Normal 1.45-7.50 [facility] Comment on above: Performed By: #### H BA1C, VITD, CBCDIF, CMP, LIPB, TSH, T4FTI, IRON, B12, SERFOL, INSULN #### [place] [phone] [place] [phone] #### T3U #### [facility] [address] [place] [address] [phone] Absolute nRBC <0.01 Normal <0.01 [facility] Comment on above: Performed By: #### H BA1C, VITD, CBCDIF, CMP, LIPB, TSH, T4FTI, IRON, B12, SERFOL, INSULN #### [place] [phone] #### T3U #### [address] [id number] [phone] Basophils/100 WBC (Bld) 0.8 % Normal [facility] Comment on above: Performed By: #### H BA1C, VITD, CBCDIF, CMP, LIPB, TSH, T4FTI, IRON, B12, SERFOL, INSULN #### [place] [phone] #### T3U #### [place] [address] [phone] DTYPE Auto Diff Normal [facility] Comment on above: Performed By: #### H BA1C, VITD, CBCDIF, CMP, LIPB, TSH, T4FTI, IRON, B12, SERFOL, INSULN #### [place] [phone] #### T3U #### [address] [address] [phone] Eosinophils (Bld) [#/Vol] 0.21 10*3/uL Normal <0.46 [facility] Comment on above: Performed By: #### H BA1C, VITD, CBCDIF, CMP, LIPB, TSH, T4FTI, IRON, B12, SERFOL, INSULN #### [place] [phone] #### T3U #### [facility] [address] [place] [address] [phone] Eosinophils/100 WBC (Bld) 4.3 % Normal [facility] Comment on above: Performed By: #### H BA1C, VITD, CBCDIF, CMP, LIPB, TSH, T4FTI, IRON, B12, SERFOL, INSULN #### [place] [phone] #### T3U #### [address] [address] [phone] Erythrocyte distribution width (RBC) [Ratio] 13.5 % Normal 11.5-15.0 [facility] Comment on above: Performed By: #### H BA1C, VITD, CBCDIF, CMP, LIPB, TSH, T4FTI, IRON, B12, SERFOL, INSULN #### [place] [address] #### T3U #### [address] [address] [phone] Hematocrit (Bld) [Volume fraction] 44.0 % Normal 36.0-46.0 [facility] Comment on above: Performed By: #### H BA1C, VITD, CBCDIF, CMP, LIPB, TSH, T4FTI, IRON, B12, SERFOL, INSULN #### [address] [address] #### T3U #### [facility] [address] [place] [address] [phone] Hemoglobin (Bld) [Mass/Vol] 13.1 g/dL Normal 11.5-15.5 [facility] Comment on above: Performed By: #### H BA1C, VITD, CBCDIF, CMP, LIPB, TSH, T4FTI, IRON, B12, SERFOL, INSULN #### [facility] [address] [place], [place] [address] #### T3U #### [address] [address] [phone] Lymphocytes (Bld) [#/Vol] 0.90 10*3/uL Low 1.00-4.00 [facility] Comment on above: Performed By: #### H BA1C, VITD, CBCDIF, CMP, LIPB, TSH, T4FTI, IRON, B12, SERFOL, INSULN #### [place] [phone] #### T3U #### [address] [address] [phone] Lymphocytes/100 WBC (Bld) 18.4 % Normal [facility] Comment on above: Performed By: #### H BA1C, VITD, CBCDIF, CMP, LIPB, TSH, T4FTI, IRON, B12, SERFOL, INSULN #### [place] [phone] [place] [phone] #### T3U #### [address] [address] [phone] MCH (RBC) [Entitic mass] 28.1 pG Normal 26.0-34.0 [facility] Comment on above: Performed By: #### H BA1C, VITD, CBCDIF, CMP, LIPB, TSH, T4FTI, IRON, B12, SERFOL, INSULN #### [place] [address] [place], [place] [address] #### T3U #### [address] [address] [phone] MCHC (RBC) [Mass/Vol] 29.8 g/dL Low 30.5-36.0 [facility] Comment on above: Performed By: #### H BA1C, VITD, CBCDIF, CMP, LIPB, TSH, T4FTI, IRON, B12, SERFOL, INSULN #### [facility] [address] [place] [phone] #### T3U #### [facility] [address] [place] [phone] MCV (RBC) [Entitic vol] 94.4 fL Normal 80.0-100.0 [facility] Comment on above: Performed By: #### H BA1C, VITD, CBCDIF, CMP, LIPB, TSH, T4FTI, IRON, B12, SERFOL, INSULN #### [facility] [address] [place] [phone] #### T3U #### [facility] [address] [place] [phone] Monocytes/100 WBC (Bld) 6.5 % Normal [facility] Comment on above: Performed By: #### H BA1C, VITD, CBCDIF, CMP, LIPB, TSH, T4FTI, IRON, B12, SERFOL, INSULN #### [facility] [address] [place] [place] [address] #### T3U #### [facility] [address] [place] [address] [phone] Neutrophils/100 WBC (Bld) 70.0 % Normal [facility] Comment on above: Performed By: #### H BA1C, VITD, CBCDIF, CMP, LIPB, TSH, T4FTI, IRON, B12, SERFOL, INSULN #### [facility] [address] [place] [phone] #### T3U #### [facility] [address] [place] [address] [phone] NRBCs 0.0 /100 WBC Normal 0 [facility] Comment on above: Performed By: #### H BA1C, VITD, CBCDIF, CMP, LIPB, TSH, T4FTI, IRON, B12, SERFOL, INSULN #### [place] [address] [place] [phone] #### T3U #### [facility] [address] [place] [address] [phone] Platelet mean volume (Bld) [Entitic vol] 13.7 fL High 9.0-12.7 [facility] Comment on above: Performed By: #### H BA1C, VITD, CBCDIF, CMP, LIPB, TSH, T4FTI, IRON, B12, SERFOL, INSULN #### [place] [phone] #### T3U #### [facility] [address] [place] [address] [phone] Platelets (Bld) [#/Vol] 162 10*3/uL Normal 150-400 [facility] Comment on above: Result Comment: Resu lt checked and verified No clot detected. Performed By: #### H BA1C, VITD, CBCDIF, CMP, LIPB, TSH, T4FTI, IRON, B12, SERFOL, INSULN #### [place] [phone] #### T3U #### [facility] [address] [place] [address] [phone] RBC (Bld) [#/Vol] 4.66 10*6/uL Normal 3.90-5.20 [facility] Comment on above: Performed By: #### H BA1C, VITD, CBCDIF, CMP, LIPB, TSH, T4FTI, IRON, B12, SERFOL, INSULN #### [place] [phone] #### T3U #### [facility] [address] [place] [address] [phone] WBC (Bld) [#/Vol] 4.89 10*3/uL Normal 3.70-11.00 [facility] Comment on above: Performed By: #### H BA1C, VITD, CBCDIF, CMP, LIPB, TSH, T4FTI, IRON, B12, SERFOL, INSULN #### [place] [phone] #### T3U #### [facility] [address] [place], [place] [id number] [phone] Comp Metabolic Panelon 04-06 Albumin [Mass/Vol] 3.9 g/dL Normal 3.9-4.9 [facility] Comment on above: Performed By: #### H BA1C, VITD, CBCDIF, CMP, LIPB, TSH, T4FTI, IRON, B12, SERFOL, INSULN #### [place] [phone] #### T3U #### [address] [id number] [phone] ALP [Catalytic activity/Vol] 140 U/L High 34-123 [facility] Comment on above: Performed By: #### H BA1C, VITD, CBCDIF, CMP, LIPB, TSH, T4FTI, IRON, B12, SERFOL, INSULN #### [place] [phone] #### T3U #### [address] [id number] [phone] ALT [Catalytic activity/Vol] 28 U/L Normal 7-38 [facility] Comment on above: Performed By: #### H BA1C, VITD, CBCDIF, CMP, LIPB, TSH, T4FTI, IRON, B12, SERFOL, INSULN #### [place] [address] #### T3U #### [facility] [address] [place], [place] [id number] [phone] Anion gap [Moles/Vol] 8 mmol/L Low 9-18 [facility] Comment on above: Performed By: #### H BA1C, VITD, CBCDIF, CMP, LIPB, TSH, T4FTI, IRON, B12, SERFOL, INSULN #### [facility] [address] [place] [address] #### T3U #### [address] [address] [phone] AST [Catalytic activity/Vol] 28 U/L Normal 13-35 [facility] Comment on above: Performed By: #### H BA1C, VITD, CBCDIF, CMP, LIPB, TSH, T4FTI, IRON, B12, SERFOL, INSULN #### [place] [address] [place] [address] #### T3U #### [address] [address] [phone] Bilirubin [Mass/Vol] 0.2 mg/dL Normal 0.2-1.3 [facility] Comment on above: Performed By: #### H BA1C, VITD, CBCDIF, CMP, LIPB, TSH, T4FTI, IRON, B12, SERFOL, INSULN #### [place] [id number] [place] [id number] #### T3U #### [address] [id number] [phone] Calcium [Mass/Vol] 9.4 mg/dL Normal 8.5-10.2 [facility] Comment on above: Performed By: #### H BA1C, VITD, CBCDIF, CMP, LIPB, TSH, T4FTI, IRON, B12, SERFOL, INSULN #### [place] [id number] [place] [id number] #### T3U #### [address] [address] [phone] Chloride [Moles/Vol] 101 mmol/L Normal 97-105 [facility] Comment on above: Performed By: #### H BA1C, VITD, CBCDIF, CMP, LIPB, TSH, T4FTI, IRON, B12, SERFOL, INSULN #### [place] [id number] [place] [phone] #### T3U #### [address] [id number] [phone] CO2 [Moles/Vol] 30 mmol/L Normal 22-30 [facility] Comment on above: Performed By: #### H BA1C, VITD, CBCDIF, CMP, LIPB, TSH, T4FTI, IRON, B12, SERFOL, INSULN #### [place] [phone] #### T3U #### [address] [phone] Creatinine [Mass/Vol] 0.83 mg/dL Normal 0.58-0.96 [facility] Comment on above: Performed By: #### H BA1C, VITD, CBCDIF, CMP, LIPB, TSH, T4FTI, IRON, B12, SERFOL, INSULN #### [place] [phone] #### T3U #### [address] [phone] eGFR- Amer. >60 Normal [facility] Comment on above: Performed By: #### H BA1C, VITD, CBCDIF, CMP, LIPB, TSH, T4FTI, IRON, B12, SERFOL, INSULN #### [place] [address] #### T3U #### [place] [address] [phone] GFR/1.73 sq M predicted among non-blacks MDRD (S/P/Bld) [Vol rate/Area] mL/min/{1.73_m2} Normal [facility] Comment on above: Result Comment: eGFR (Estimated GFR) Units of measure: mL/min/1.73 meters squared eGFR is derived from the reexpressed MDRD Study equation using the following parameters: serum creatinine, age, gender and race. The creatinine assay has been calibrated to be traceable to ID[place]. An eGFR <60 mL/min/1.73m2 for >3 months is consistent with chronic kidney disease. Refer to KDOQI guidelines for clinical interpretation. In patients with unstable renal function, e.g. those with acute kidney injury, the eGFR may not accurately reflect actual GFR. Performed By: #### H BA1C, VITD, CBCDIF, CMP, LIPB, TSH, T4FTI, IRON, B12, SERFOL, INSULN #### [facility] [address] [place] [phone] #### T3U #### [facility] [address] [place] [address] [phone] Glucose [Mass/Vol] 90 mg/dL Normal 74-99 [facility] Comment on above: Result Comment: The [place] Diabetes Association (ADA) provides guidance for cutoff values for fasting glucose and random glucose. The ADA defines fasting as no caloric intake for at least 8 hours. Fasting plasma glucose results between 100 to 125 mg/dL indicate increased risk for diabetes (prediabetes). Fasting plasma glucose results greater than or equal to 126 mg/dL meet the criteria for diagnosis of diabetes. In the absence of unequivocal hyperglycemia, results should be confirmed by repeat testing. In a patient with classic symptoms of hyperglycemia or hyperglycemic crisis, random plasma glucose results greater than or equal to 200 mg/dL meet the criteria for diagnosis of diabetes. Reference: Standards of Medical Care in Diabetes 2016, [place] Diabetes Association. Diabetes Care. 2016.39(Suppl 1). Performed By: #### H BA1C, VITD, CBCDIF, CMP, LIPB, TSH, T4FTI, IRON, B12, SERFOL, INSULN #### [facility] [address] [place] [address] #### T3U #### [facility] [address] [place] [address] [phone] Potassium [Moles/Vol] 4.9 mmol/L Normal 3.7-5.1 [facility] Comment on above: Performed By: #### H BA1C, VITD, CBCDIF, CMP, LIPB, TSH, T4FTI, IRON, B12, SERFOL, INSULN #### [place] [phone] #### T3U #### [address] [address] [phone] Protein [Mass/Vol] 6.8 g/dL Normal 6.3-8.0 [facility] Comment on above: Performed By: #### H BA1C, VITD, CBCDIF, CMP, LIPB, TSH, T4FTI, IRON, B12, SERFOL, INSULN #### [place] [phone] #### T3U #### [address] [address] [phone] Sodium [Moles/Vol] 139 mmol/L Normal 136-144 [facility] Comment on above: Performed By: #### H BA1C, VITD, CBCDIF, CMP, LIPB, TSH, T4FTI, IRON, B12, SERFOL, INSULN #### [place] [phone] #### T3U #### [address] [address] [phone] Urea nitrogen [Mass/Vol] 14 mg/dL Normal 7-21 [facility] Comment on above: Performed By: #### H BA1C, VITD, CBCDIF, CMP, LIPB, TSH, T4FTI, IRON, B12, SERFOL, INSULN #### [place] [phone] #### T3U #### [address] [address] [phone] Folate, Serumon 04-06-2019 Folate [Mass/Vol] ng/mL Normal >4.7 [facility] Comment on above: Result Comment: A re sult of > 20 ng/mL is not necessarily indicative of a pathologic or treatable condition: it reflects a limitation of the test methodology. Assay reference range: 4.8 to 24.2 ng/mL. Suitable for detection of folate deficiency. Reference: Folate III (Folate III) [package insert V 2.0 Armenian]. [facility], [place], [place]: March 2015. Performed By: #### H BA1C, VITD, CBCDIF, CMP, LIPB, TSH, T4FTI, IRON, B12, SERFOL, INSULN #### [facility] [address] [place] [phone] #### T3U #### [address] [address] [phone] Hemoglobin A1con 04-06-2019 HbA1c (Bld) [Mass fraction] 5.4 % Normal 4.3-5.6 [facility] Comment on above: Result Comment: Amer [place] Diabetes Association guidelines indicate that patients with HgbA1c in the range 5.7-6.4% are at increased risk for development of diabetes, and intervention by lifestyle modification may be beneficial. HgbA1c greater or equal to 6.5% is considered diagnostic of diabetes. Performed By: #### H BA1C, VITD, CBCDIF, CMP, LIPB, TSH, T4FTI, IRON, B12, SERFOL, INSULN #### [facility] [employer] [address] [place] [phone] #### T3U #### [facility] [address] [place] [phone] HbA1c (Bld) [Mass fraction] 108 mg/dL Normal [facility] Comment on above: Result Comment: eAG: (Estimated average glucose) is a calculated value from HgbA1c and is sales representative trainee of the average blood glucose level in the last 2-3 month period. Performed By: #### H BA1C, VITD, CBCDIF, CMP, LIPB, TSH, T4FTI, IRON, B12, SERFOL, INSULN #### [place] [phone] #### T3U #### [facility] [address] [place] [address] [phone] Insulinon 04-06-2019 Insulin 6.0 mU/L Normal 3.0-25.0 [facility] Comment on above: Performed By: #### H BA1C, VITD, CBCDIF, CMP, LIPB, TSH, T4FTI, IRON, B12, SERFOL, INSULN #### [place] [address] #### T3U #### [facility] [address] [place] [phone] Iron and TIBCon 04-06-2019 Iron [Mass/Vol] 57 ug/dL Normal 41-186 [facility] Comment on above: Performed By: #### H BA1C, VITD, CBCDIF, CMP, LIPB, TSH, T4FTI, IRON, B12, SERFOL, INSULN #### [place] [address] #### T3U #### [facility] [address] [place] [address] [phone] TIBC 316 ug/dL Normal 232-386 [facility] Comment on above: Performed By: #### H BA1C, VITD, CBCDIF, CMP, LIPB, TSH, T4FTI, IRON, B12, SERFOL, INSULN #### [place] [address] #### T3U #### [facility] [address] [place] [address] [phone] Transferrin Saturatn 18 % Normal 15-57 [facility] Comment on above: Performed By: #### H BA1C, VITD, CBCDIF, CMP, LIPB, TSH, T4FTI, IRON, B12, SERFOL, INSULN #### [place] [phone] #### T3U #### [address] [address] [phone] Lipid Panel, [place] 019 Cholesterol [Mass/Vol] 230 mg/dL High <200 [facility] Comment on above: Result Comment: <200 mg/dL, Desirable 200-239 mg/dL, Borderline high >239 mg/dL, High Performed By: #### H BA1C, VITD, CBCDIF, CMP, LIPB, TSH, T4FTI, IRON, B12, SERFOL, INSULN #### [place] [address] #### T3U #### [address] [id number] [phone] Cholesterol in HDL [Mass/Vol] 57 mg/dL Normal >39 [facility] Comment on above: Result Comment: 40-5 9 mg/dL, Acceptable >59 mg/dL, High: Negative risk factor for coronary heart disease <40 mg/dL, Low: Positive risk factor for coronary heart disease Performed By: #### H BA1C, VITD, CBCDIF, CMP, LIPB, TSH, T4FTI, IRON, B12, SERFOL, INSULN #### [place] [address] #### T3U #### [address] [address] [phone] Cholesterol in LDL [Mass/Vol] 156 mg/dL High <100 [facility] Comment on above: Result Comment: <100 mg/dL, Optimal 100-129 mg/dL, Near optimal/above optimal 130-159 mg/dL, Borderline high 160-189 mg/dL, High >189 mg/dL, Very high Secondary prevention optimal LDL Cholesterol levels are recommended to be < 70 mg/dL Performed By: #### H BA1C, VITD, CBCDIF, CMP, LIPB, TSH, T4FTI, IRON, B12, SERFOL, INSULN #### [facility] [employer] [address] [place] [phone] #### T3U #### [facility] [address] [place] [address] [phone] Fasting Time Unknown Normal [facility] Comment on above: Performed By: #### H BA1C, VITD, CBCDIF, CMP, LIPB, TSH, T4FTI, IRON, B12, SERFOL, INSULN #### [place] [address] [place] [phone] #### T3U #### [facility] [address] [place] [address] [phone] LDL:HDL Ratio 2.74 High <2.54 [facility] Comment on above: Result Comment: Refe renflor: 1. National Cholesterol Education Program ATP III Guideline At-A-Glance Quick Desk Reference: National Heart, Lung, and Blood [place]. National Institutes of Health. 2001: NIH Publication No. 01-3305. 2. An International Atherosclerosis Society position paper: global recommendations for the management of dyslipidemia: executive summary, Atherosclerosis. 2014: 232(2):410-413. Performed By: #### H BA1C, VITD, CBCDIF, CMP, LIPB, TSH, T4FTI, IRON, B12, SERFOL, INSULN #### [place] [phone] #### T3U #### [facility] [address] [place] [address] [phone] Non HDL Cholesterol 173 mg/dL High <130 [facility] Comment on above: Result Comment: <130 mg/dL, Optimal 130-159 mg/dL, Near optimal/above optimal 160-189 mg/dL, Borderline high 190-219 mg/dL, High >219 mg/dL, Very high Secondary prevention optimal non HDL Cholesterol levels are recommended to be < 100 mg/dL Performed By: #### H BA1C, VITD, CBCDIF, CMP, LIPB, TSH, T4FTI, IRON, B12, SERFOL, INSULN #### [place] [address] [phone] #### T3U #### [facility] [address] [place] [address] [phone] TC:HDL Ratio 4.04 Normal <5.10 [facility] Comment on above: Performed By: #### H BA1C, VITD, CBCDIF, CMP, LIPB, TSH, T4FTI, IRON, B12, SERFOL, INSULN #### [place] [phone] #### T3U #### [facility] [address] [place] [address] [phone] Triglyceride [Mass/Vol] 86 mg/dL Normal <150 [facility] Comment on above: Result Comment: <150 mg/dL, Normal 150-199 mg/dL, Borderline high 200-499 mg/dL, High >499 mg/dL, Very high Performed By: #### H BA1C, VITD, CBCDIF, CMP, LIPB, TSH, T4FTI, IRON, B12, SERFOL, INSULN #### [place] [phone] #### T3U #### [facility] [address] [place] [address] [phone] VLDL Cholesterol 17 mg/dL Normal <30 [facility] Comment on above: Performed By: #### H BA1C, VITD, CBCDIF, CMP, LIPB, TSH, T4FTI, IRON, B12, SERFOL, INSULN #### [place] [phone] #### T3U #### [facility] [address] [place] [address] [phone] T3 Uptake DO NOT ORDER ON CC F PATIENTSon 04-06-2019 T3 Uptake 35 % Normal 28-41 [facility] Comment on above: Result Comment: (NOT E) INTERPRETIVE INFORMATION: T3 Uptake Thyroxine, Free (Free T4) ([id number]) is the preferred test alternative for the T3 uptake and Free Thyroxine Index tests. Performed by [facility] [employer], [address] [place] [address] [email or web address], Hebert De Santiago MD, Lab. Director Performed By: #### H BA1C, VITD, CBCDIF, CMP, LIPB, TSH, T4FTI, IRON, B12, SERFOL, INSULN #### [place] [phone] #### T3U #### [address] [address] [phone] T4/FTIon 04-06-2019 FTI 6.8 ug/dL Normal 5.3-10.8 [facility] Comment on above: Performed By: #### H BA1C, VITD, CBCDIF, CMP, LIPB, TSH, T4FTI, IRON, B12, SERFOL, INSULN #### [place] [phone] #### T3U #### [place] [address] [phone] T4 [Mass/Vol] 7.2 ug/dL Normal 5.5-10.2 [facility] Comment on above: Performed By: #### H BA1C, VITD, CBCDIF, CMP, LIPB, TSH, T4FTI, IRON, B12, SERFOL, INSULN #### [facility] [employer] [address] [place] [phone] #### T3U #### [address] [address] [phone] T4 Uptake 1.06 Normal 0.91-1.19 [facility] Comment on above: Performed By: #### H BA1C, VITD, CBCDIF, CMP, LIPB, TSH, T4FTI, IRON, B12, SERFOL, INSULN #### [facility] [employer] [address] [place] [address] #### T3U #### [address] [place] [address] [phone] TSHon 04-06-2019 TSH Qn 4.220 uU/mL High 0.270-4.200 [facility] Comment on above: Performed By: #### H BA1C, VITD, CBCDIF, CMP, LIPB, TSH, T4FTI, IRON, B12, SERFOL, INSULN #### [facility] [employer] [address] [place] [address] #### T3U #### [facility] [address] [place] [address] [phone] Vitamin B12on 04-06-2019 Cobalamin (Vitamin B12) [Mass/Vol] 353 pg/mL Normal 232-1245 [facility] Comment on above: Performed By: #### H BA1C, VITD, CBCDIF, CMP, LIPB, TSH, T4FTI, IRON, B12, SERFOL, INSULN #### [facility] [employer] [address] [place] [phone] #### T3U #### [facility] [address] [place] [address] [phone] Vitamin D 25 Hydroxyon 04-06 Vitamin D 25 Hydroxy 33.1 ng/mL Normal 31.0-80.0 [facility] Comment on above: Result Comment: Clas sification of 25 [place] Vitamin D status: Insufficiency/Moderate Deficiency: < or = 30 ng/mL Sufficiency/Optimal Levels: 31 to 80 ng/mL Toxicity: > 100 ng/mL Test performed by chemiluminescent immunoassay. Performed By: #### H BA1C, VITD, CBCDIF, CMP, LIPB, TSH, T4FTI, IRON, B12, SERFOL, INSULN #### [facility] [employer] [address] [place] [address] #### T3U #### [facility] [address] [place] [address] [phone] Encounters Encounter Date Encounter Type Care Provider Facility Start: 06-27-2023 End: 06-27[facility]2023 [facility] Start: 12-30-2022 End: 12-30-2022 ambulatory [facility] Start: 09-16-2022 End: 09-16-2022 ambulatory [facility] Start: 09-10-2021 End: 09-11-2021 ambulatory AARON AGUILERA Facility:[facility] Start: 03-21-2021 End: 03-22-2021 ambulatory AARON AGUILERA Facility:[facility] Start: 10-11-2020 ambulatory AARON AGUILERA Facility:[facility] 1 Start: 10-09-2020 End: 10-10-2020 ambulatory AARON AGUILERA Facility:[facility] Start: 09-22-2020 End: 09-23-2020 ambulatory AARON AGUILERA Facility:[facility] Procedures Date Procedure Procedure Detail Performing Clinician Start: 09-16-2022 Follow-up visit [facility] Payers Date Payer Category Payer Medicare [id number] 1959 Medicare [id number] 1959 Self-pay [id number] 1950 Unknown [id number] 2.16.84 [id number] 1950 Unknown [id number] 2.16.84 [id number] 1950 Unknown [id number] 2.16.84 [id number] 1950 Unknown [id number] 2.16.84 [id number] 1950 Unknown [id number] 2.16.84 [id number] Progress note 06-27-2023 Note Date & Type Note Facility 06-27-2023 Note Patient here for 6 m o follow up hyperlipidemia, hypertension, and PVC's. She had lipid profile done in Mar 2023. Denies chest pain, SOB, and palpitations. She's doing very well and has no cardiac complaints at this time. Review of Systems Constitutional: Positive for malaise/fatigue. Musculoskeletal: Positive for arthritis, joint pain and myalgias. All other systems reviewed and are negative. [facility] Progress note 06-27-2023 Note Date & Type Note Facility 06-27-2023 Note [place] [facility] Note SUBJECTIVE Danny Cornelius is a 72 y.o. female here for follow-up. HPI Ms. Cornelius Presents to cardiology clinic for routine follow-up. She is doing well. She denies any cardiac complaints or concerns. She denies any chest pain or shortness of breath. She denies any lower extremity edema, orthopnea, paroxysmal nocturnal dyspnea. Overall, she is very pleased with how she is doing. Dizziness has improved, and still has her stress level. As such, she feels much better overall. She is back to taking her statin, and this is reflected in improved lipid panel Patient Active Problem List Diagnosis B12 deficiency Fatigue Hyperlipidemia Hypertensive disorder Iron deficiency S/P gastric bypass Ventricular premature beats Past Medical History: Diagnosis Date Hyperlipidemia Hypertension Family History Problem Relation Name Age of Onset Coronary artery disease Mother Coronary artery disease Father Social History Tobacco Use Smoking status: Never Smokeless tobacco: Never Substance Use Topics Alcohol use: Not Currently Allergies Allergen Reactions Tetanus Vaccines And Toxoid Fever and Other Fever,chills achy. Review of Systems 10 point ROS is performed and is negative unless otherwise specified in HPI OBJECTIVE Visit Vitals BP 112/77 (BP Location: Right wrist, Patient Position: Sitting) Pulse 70 Ht 1.549 m (5' 1 ) Wt 128 kg (282 lb) SpO2 97% BMI 53.28 kg/m??? Smoking Status Never BSA 2.35 m??? Medications: Current Outpatient Medications: carvedilol (Coreg) 12.5 mg tablet, TAKE 1 TABLET (12.5 MG) BY MOUTH WITH BREAKFAST AND WITH EVENING MEAL., Disp: 180 tablet, Rfl: 3 chlorthalidone (Hygroton) 25 mg tablet, TAKE 1 TABLET BY MOUTH EVERY DAY, Disp: 90 tablet, Rfl: 3 cholecalciferol (Vitamin D-3) 50 MCG (1999) tablet, Take 50 tablets by mouth in the morning and at bedtime., Disp: , Rfl: ferrous sulfate 325 (65 Fe) MG tablet, Take 65 mg by mouth in the morning and at bedtime., Disp: , Rfl: pravastatin (Pravachol) 40 mg tablet, TAKE 1 TABLET BY MOUTH EVERYDAY AT BEDTIME, Disp: 90 tablet, Rfl: 3 Physical Exam Vitals reviewed. Constitutional: Appearance: Normal appearance. She is obese. HENT: Head: Normocephalic and atraumatic. Right Ear: External ear normal. Left Ear: External ear normal. Eyes: Extraocular Movements: Extraocular movements intact. Conjunctiva/sclera: Conjunctivae normal. Pupils: Pupils are equal, round, and reactive to light. Neck: Vascular: No carotid bruit. Comments: No JVD Cardiovascular: Rate and Rhythm: Normal rate and regular rhythm. Pulses: Normal pulses. Heart sounds: Normal heart sounds. Pulmonary: Effort: Pulmonary effort is normal. Breath sounds: Normal breath sounds. Abdominal: General: Bowel sounds are normal. Palpations: Abdomen is soft. Musculoskeletal: Cervical back: Neck supple. Right lower leg: Edema present. Left lower leg: Edema present. Comments: Lymphedema to BLE Skin: General: Skin is warm and dry. Neurological: General: No focal deficit present. Mental Status: She is alert and oriented to person, place, and time. Psychiatric: Mood and Affect: Mood normal. Behavior: Behavior normal. Thought Content: Thought content normal. Judgment: Judgment normal. Labs/Testing/Procedures: Labs 09/10/2021: CBC - hgb 11.7, RBC 4.14 otherwise unremarkble, BMP: unremrkable, LFTs: ALT/AST normal, ALP 135, alb 2.8, Lipids: chol 193, HDL 55, trig 86, LDL 120 Labs 10/09/2020: CMP: Cr. 0.98, BUN 15, K 4.1, GFR 56, ALT 22, AST 22 Labs 07/18/20: CBC unremarkable CMP: Cr. 1.02, BUN 17, GFR 54, K 4.1, AST 21, ALT 23 Chol: 197, HDL 63, trig 121, LDL 109 ECHO 09/2019: EF preserved, mild LVH, normal RV function, no valvular abnormalities Holter 09/2019: PVCs ASSESSMENT/PLAN: #HTN -BP Is well controlled -Continue Coreg 12.5 mg twice daily and chlorthalidone 25 mg daily -Reminded patient of importance of heart healthy diet and exercise. #HLD -Patient is back to taking her pravastatin. Lipid panels has improved. -Discussed importance of medication compliance. Also discussed to switching to Lipitor or Crestor. Patient declines at this time. We will continue pravastatin and recheck lipids in 3 months, since patient states that she will take her medication. #PVCs -Palpitations have resolved. -Continue BB. #Fatigue/chronic dyspnea -Echo was unremarkable. LVEF is normal. Right-sided pressures are normal -I again discussed importance of having a sleep study. Patient declines at this time -Optimize medical management -Aggressive risk factor modification -Plan of care discussed with patient. All questions were answered. Patient voices understanding and is agreeable with current plan. -Patient was educated on red flag symptoms. Strict return precautions were provided. Patient verbalizes understanding -Follow-up in cardiology (more content not included)... [facility] Progress note 12-30-2022 Note Date & Type Note Facility 12-30-2022 Note SUBJECTIVE Chief Complaint Patient presents with Follow-up Labs and echo, pt refused the sleep study. Danny Cornelius is a 72 y.o. female here for follow-up. HPI Overall, she is doing well. She denies any cardiac complaints or concerns. No chest pain or shortness of breath. She denies any worsening lower extremity edema. No orthopnea or paroxysmal nocturnal dyspnea. She had her echo performed, which was unremarkable. She is refusing to have sleep study performed. No additional complaints or concerns at the present time. Patient admits that she had not been taking her statin. She was upset with her lipid panel results, and has resumed taking the medication. Patient Active Problem List Diagnosis B12 deficiency Fatigue Hyperlipidemia Hypertensive disorder Iron deficiency S/P gastric bypass Ventricular premature beats Past Medical History: Diagnosis Date Hyperlipidemia Hypertension Family History Problem Relation Name Age of Onset Coronary artery disease Mother Coronary artery disease Father Social History Tobacco Use Smoking status: Never Smokeless tobacco: Never Substance Use Topics Alcohol use: Not Currently Allergies Allergen Reactions Tetanus Vaccines And Toxoid Fever and Other Fever,chills achy. Review of Systems 10 point ROS is performed and is negative unless otherwise specified in HPI OBJECTIVE Visit Vitals BP 113/84 (BP Location: Left wrist, Patient Position: Sitting, BP Cuff Size: Large adult) Pulse 68 Ht 1.549 m (5' 1 ) Wt 126 kg (277 lb 9.6 oz) SpO2 99% BMI 52.45 kg/m??? Smoking Status Never BSA 2.33 m??? Medications: Current Outpatient Medications: carvedilol (Coreg) 12.5 mg tablet, Take 1 tablet (12.5 mg) by mouth with breakfast and with evening meal., Disp: 180 tablet, Rfl: 3 chlorthalidone (Hygroton) 25 mg tablet, TAKE 1 TABLET BY MOUTH EVERY DAY, Disp: 90 tablet, Rfl: 3 cholecalciferol (Vitamin D-3) 50 MCG (2000 [place]) tablet, Take 50 tablets by mouth in the morning and at bedtime., Disp: , Rfl: ferrous sulfate 325 (65 Fe) MG tablet, Take 65 mg by mouth in the morning and at bedtime., Disp: , Rfl: pravastatin (Pravachol) 40 mg tablet, TAKE 1 TABLET BY MOUTH EVERYDAY AT BEDTIME, Disp: 90 tablet, Rfl: 3 Physical Exam Vitals reviewed. Constitutional: Appearance: Normal appearance. She is obese. HENT: Head: Normocephalic and atraumatic. Right Ear: External ear normal. Left Ear: External ear normal. Eyes: Extraocular Movements: Extraocular movements intact. Conjunctiva/sclera: Conjunctivae normal. Pupils: Pupils are equal, round, and reactive to light. Neck: Vascular: No carotid bruit. Comments: No JVD Cardiovascular: Rate and Rhythm: Normal rate and regular rhythm. Pulses: Normal pulses. Heart sounds: Normal heart sounds. Pulmonary: Effort: Pulmonary effort is normal. Breath sounds: Normal breath sounds. Abdominal: General: Bowel sounds are normal. Palpations: Abdomen is soft. Musculoskeletal: Cervical back: Neck supple. Right lower leg: Edema present. Left lower leg: Edema present. Comments: Lymphedema to BLE Skin: General: Skin is warm and dry. Neurological: General: No focal deficit present. Mental Status: She is alert and oriented to person, place, and time. Psychiatric: Mood and Affect: Mood normal. Behavior: Behavior normal. Thought Content: Thought content normal. Judgment: Judgment normal. Labs/Testing/Procedures: Labs 09/10/2021: CBC - hgb 11.7, RBC 4.14 otherwise unremarkble, BMP: unremrkable, LFTs: ALT/AST normal, ALP 135, alb 2.8, Lipids: chol 193, HDL 55, trig 86, LDL 120 Labs 10/09/2020: CMP: Cr. 0.98, BUN 15, K 4.1, GFR 56, ALT 22, AST 22 Labs 07/18/20: CBC unremarkable CMP: Cr. 1.02, BUN 17, GFR 54, K 4.1, AST 21, ALT 23 Chol: 197, HDL 63, trig 121, LDL 109 ECHO 09/2019: EF preserved, mild LVH, normal RV function, no valvular abnormalities Holter 09/2019: PVCs ASSESSMENT/PLAN: #HTN -BP Is much better controlled -Continue Coreg 12.5 mg twice daily and chlorthalidone 25 mg daily -Discussed importance of heart healthy diet and exercise. #HLD -LDL significantly above target. Patient admits that she was not taking her statin medicaiton -Discussed importance of medication compliance. Also discussed to switching to Lipitor or Crestor. Patient declines at this time. We will continue pravastatin and recheck lipids in 3 months, since patient states that she will take her medication. #PVCs -Palpitations have resolved. -Continue BB. #Fatigue/chronic dyspnea -Echo was unremarkable. LVEF is normal. Right-sided pressures are normal -I again discussed importance of having a sleep study. Patient declines at this time -Optimize medical management -Aggressive risk factor modification -Plan of care discussed with patient. All questions were answered. Patient voices understanding and is agreeable with current plan. -Patient was (more content not included)... [facility] Progress note 09-16-2022 Note Date & Type Note Facility 09-16-2022 Note Pt is here today for a 6 month follow up. [facility] Progress note 09-16-2022 Note Date & Type Note Facility 09-16-2022 Note SUBJECTIVE Chief Complaint Patient presents with Follow-up 6 month follow up Danny Cornelius is a 72 y.o. female here for follow-up. HPI Patient here for follow up on hypertension and hyperlipidemia. Overall, patient states that she has been doing well. She is heavily involved in her [employer] business, and as such, she states that she fatigues easily. She denies any chest pain. She does endorse some dyspnea on exertion that she states has been stable for quite some time. Her biggest complaint is of overall fatigue. She denies any worsening lower extremity SHAHNAZ, orthopnea, paroxysmal nocturnal dyspnea. No near-syncope or syncope Patient Active Problem List Diagnosis B12 deficiency Fatigue Hyperlipidemia Hypertensive disorder Iron deficiency S/P gastric bypass Ventricular premature beats Past Medical History: Diagnosis Date Hyperlipidemia Hypertension Family History Problem Relation Name Age of Onset Coronary artery disease Mother Coronary artery disease Father Social History Tobacco Use Smoking status: Never Smokeless tobacco: Never Substance Use Topics Alcohol use: Not Currently Allergies Allergen Reactions Tetanus Vaccines And Toxoid Fever and Other Fever,chills achy. Review of Systems Cardiovascular: Positive for dyspnea on exertion. Musculoskeletal: Positive for arthritis, joint pain and myalgias. All other systems reviewed and are negative. OBJECTIVE Visit Vitals BP (!) 142/96 (BP Location: Left arm, Patient Position: Sitting, BP Cuff Size: Large adult) Pulse 65 Wt 129 kg (284 lb 3.2 oz) SpO2 95% BMI 53.70 kg/m??? Smoking Status Never BSA 2.36 m??? Medications: Current Outpatient Medications: carvedilol (Coreg) 12.5 mg tablet, Take 1 tablet (12.5 mg) by mouth with breakfast and with evening meal., Disp: 180 tablet, Rfl: 3 chlorthalidone (Hygroton) 25 mg tablet, TAKE 1 TABLET BY MOUTH EVERY DAY, Disp: 90 tablet, Rfl: 3 cholecalciferol (Vitamin D-3) 50 MCG (1999 UT) tablet, Take 50 tablets by mouth in the morning and at bedtime., Disp: , Rfl: ferrous sulfate 325 (65 Fe) MG tablet, Take 65 mg by mouth in the morning and at bedtime., Disp: , Rfl: pravastatin (Pravachol) 40 mg tablet, TAKE 1 TABLET BY MOUTH EVERYDAY AT BEDTIME, Disp: 90 tablet, Rfl: 3 Physical Exam Vitals reviewed. Constitutional: Appearance: Normal appearance. She is obese. HENT: Head: Normocephalic and atraumatic. Right Ear: External ear normal. Left Ear: External ear normal. Eyes: Extraocular Movements: Extraocular movements intact. Conjunctiva/sclera: Conjunctivae normal. Pupils: Pupils are equal, round, and reactive to light. Neck: Vascular: No carotid bruit. Comments: No JVD Cardiovascular: Rate and Rhythm: Normal rate and regular rhythm. Pulses: Normal pulses. Heart sounds: Normal heart sounds. Pulmonary: Effort: Pulmonary effort is normal. Breath sounds: Normal breath sounds. Abdominal: General: Bowel sounds are normal. Palpations: Abdomen is soft. Musculoskeletal: Cervical back: Neck supple. Right lower leg: Edema present. Left lower leg: Edema present. Comments: Lymphedema to BLE Skin: General: Skin is warm and dry. Neurological: General: No focal deficit present. Mental Status: She is alert and oriented to person, place, and time. Psychiatric: Mood and Affect: Mood normal. Behavior: Behavior normal. Thought Content: Thought content normal. Judgment: Judgment normal. Labs/Testing/Procedures: Labs 09/10/2021: CBC - hgb 11.7, RBC 4.14 otherwise unremarkble, BMP: unremrkable, LFTs: ALT/AST normal, ALP 135, alb 2.8, Lipids: chol 193, HDL 55, trig 86, LDL 120 Labs 10/09/2020: CMP: Cr. 0.98, BUN 15, K 4.1, GFR 56, ALT 22, AST 22 Labs 07/18/20: CBC unremarkable CMP: Cr. 1.02, BUN 17, GFR 54, K 4.1, AST 21, ALT 23 Chol: 197, HDL 63, trig 121, LDL 109 ECHO 09/2019: EF preserved, mild LVH, normal RV function, no valvular abnormalities Holter 09/2019: PVCs ASSESSMENT/PLAN: #HTN -BP Is better controlled but remains elevated. Patient states that she has been taking her Coreg, but has not been taking the chlorthalidone as she did not believe she still had to take it -Continue Coreg 12.5 mg twice daily. Instructed patient to restart chlorthalidone, and to recheck BMP in 7 to 10 days. She voices understanding -To monitor blood pressure at home. She will contact cardiology if she has any persistently elevated blood pressure -Discussed importance of heart healthy diet and exercise. #HLD -Continue statin -We will recheck lipid panel #PVCs -Palpitations have improved. -Continue BB. #Fatigue/chronic dyspnea -Ongoing -Will check TSH, BMP -Will order sleep study -Will order echo -Declines ischemic eval at this time -Optimize medical management -Aggressive risk factor modification -Plan of care discussed with patient. All questions were answered. Patient voices understanding (more content not included)... [facility] Summary Purpose Family History No Family History Records FoundNo Family History Records FoundNo Family History Records Found Advance Directives No Advanced Directives Records FoundNo Advanced Directives Records FoundNo Advanced Directives Records Found Additional Source Comments INFORMATION SOURCE (unrecogn ized section and content) DATE CREATED AUTHOR 04/24/2019 [facility] DATE CREATED AUTHOR AUTHOR'S ORGANIZ ATION 09/13/2021 [facility] DATE CREATED AUTHOR AUTHOR'S ORGANIZ ATION 06/28/2023 [facility] FOR RECORDS PERTAINING TO PATIENTS WHO ARE OR HAVE BEEN ENROLLED IN A CHEMICAL DEPENDENCY/SUBSTANCEABUSE PROGRAM, SOME INFORMATION MAY BE OMITTED. This clinical summary was aggregated from multiple sources. Caution should be exercised in using it in the provision of clinical care. This summary normalizes information from multiple sources, and as a consequence, information in this document may materially change the coding, format and clinical context of patient data. In addition, data may be omitted in some cases. CLINICAL DECISIONS SHOULD BE BASED ON THE PRIMARY CLINICAL RECORDS. [employer] provides no warranty or guarantee of the accuracy or completeness of information in this document.
[2023-07-21 15:30] LABS: SARS-CoV-2 NAA NOT DETECTED (NOT DETECTE)
== END 2023-07-21 11:34 | disposition home or self-care (01) ==
LOC: LAB 11:33
PROVIDERS: PCP Nurse Practitioner Family; Visit Provider Nurse Practitioner Family
DX: R43.2 Parageusia (principal)
CPT/HCPCS: 87635

== ENCOUNTER 2025-04-04 07:29 | Outpatient (OUT) | payer MEDICARE, SELFPAY ==
--- NOTE | 2025-04-04 07:34 | MM_ITS ---
Patient Name: DANNY GARCIA MR#: [id number] : 1950 Exam Date: 04/04/2025 Ordering Doctor: AARON PERRY STAGE DIRECTOR RADIOLOGY REPORT PROCEDURE: MM TOMOSYNTHESIS SCREENING BI COMPARISON: MM POST BIOPSY LT, 12/17/2022. MM TOMOSYNTHESIS SCREENING BI, 11/27/2022. MG MAMM SCREEN 3D JONY CAD, 03/21/2021. MG MAMM SCREEN JONY W CAD, 12/18/2016. INDICATIONS: Screening Calculator Name NCI Breast Cancer Risk Assessment Tool 5 Year Breast Cancer Risk 2.90% Lifetime Breast Cancer Risk 6.70% Personal Breast Cancer No Personal Ovarian Cancer No Treatments None Family Cancers Grandfather-maternal with lung cancer at age 62. LOCATION: [facility] BREAST COMPOSITION: There are scattered areas of fibroglandular density. FINDINGS: RIGHT BREAST: No significant suspicious finding. Benign-appearing calcifications are present. LEFT BREAST: No significant suspicious finding. Benign-appearing calcifications are present. There has been interval resolution of a focal asymmetry on the left. DIAGNOSTIC CATEGORY 2--BENIGN FINDING. NO CHANGE FROM COMPARISON. RECOMMENDATIONS: ROUTINE MAMMOGRAM AND CLINICAL EVALUATION IN 12 MONTHS. Dictated by: Chandler Stack MD on 04/04/2025 at 13:24 Approved by: Chandler Stack MD on 04/04/2025 at 13:33
--- OUTSIDE RECORDS SUMMARY | 2025-04-04 07:35 | XMS_ITS | CCD ---
Author Organization [facility] Care Team Providers Care Customer Account Administrator Name Role Phone WILLY, AARON Admitting Unavailable WILLY, AARON Attending Unavailable WILLY, AARON Primary Care Unavailable WILLY, AARON Consulting Unavailable WILLY, AARON Admitting Unavailable WILLY, AARON Attending Unavailable WILLY, AARON Primary Care Unavailable WILLY, AARON Admitting Unavailable WILLY, AARON Attending Unavailable WILLY, AARON Primary Care Unavailable WILLY, AARON Consulting Unavailable WILLY, AARON Admitting Unavailable WILLY, AARON Attending Unavailable WILLY, AARON Primary Care Unavailable JUAN, DR JUAN Rucker Consulting Unavailable WILLY, AARON Consulting Unavailable WILLY, AARON Admitting Unavailable WILLY, AARON Attending Unavailable WILLY, AARON Primary Care Unavailable DR JUAN MARTINEZ V Consulting Unavailable WILLY, AARON Consulting Unavailable ALGHOTHANI, MOHAMAD Attending Unavailable ALGHOTHANI, MOHAMAD Attending Unavailable ALGHOTHANI, MOHAMAD Attending Unavailable Allergies Allergy ClassificationReported Allergen(s)Allergy TypeDate of OnsetReaction(s) Facility (2 sources)AllopurinolDrug Uowzwdh14-94-9578Qws [facility] Repository (1 source)TETANUS VACCINES AND TOXOID; Translations: [TETANUS VACCINES AND TOXOID]Propensity to adverse reactions to drug (disorder)60-32-6919NbenbcvauxOhio State East Hospital Repository Problems Active Problems Problem ClassificationProblemDateDocumented DateEpisodic/ChronicDeficiency and other anemia (1 source)Vitamin B12 deficiency anemia, unspecified; Translations: [VITAMIN B12 DEFICIENCY ANEMIA UNS]Onset: 11-28-8010SbfjnebhKqizzelr mellitus without complication (1 source)Other abnormal glucose; Translations: [OTHER ABNORMAL GLUCOSE]Onset: 27-81-0019SjvgykmrUowsmibxs of lipid metabolism (4 sources)Hyperlipidemia, unspecified; Translations: [HYPERLIPIDEMIA UNSPECIFIED]Onset: 12-02-3596DyyrcekOwuscfyrl hypertension (1 source)Essential (primary) hypertension; Translations: [ESSENTIAL PRIMARY HYPERTENSION]Onset: 44-61-6129CmseokwNrqvbee and fatigue (1 source)Other fatigue; Translations: [OTHER FATIGUE]Onset: 03-95-9517Vhcivacm Menopausal disorders (1 source)Other primary ovarian failure; Translations: [OTHER PRIMARY OVARIAN FAILURE]Onset: 85-45-0517NwwcwzcQxphm aftercare (1 source)Other senior living (current) drug therapy; Translations: [OTH CUSTODIAL CURRENT DRUG THERAPY]Onset: 18-99-3840AteopusmAwvhv bone disease and musculoskeletal deformities (1 source)Other specified disorders of bone density and structure, unspecified site; Translations: [OTH D/O BONE DEN STRUCT UNS SITE]Onset: 45-34-1032Ssinjmrz Past or Other Problems Problem ClassificationProblemDateDocumented DateEpisodic/ChronicNutritional deficiencies (1 source)Deficiency of other specified B group vitamins; Translations: [DEFICIENCY SPEC B GROUP VITAMINS]Onset: 62-61-3926PqihkjddTwiim liver diseases (4 sources)Abnormal levels of other serum enzymes; Translations: [ABNORMAL LEVELS OTHER SERUM ENZYMES]Onset: 84-08-6033BxvmwideYstdn screening for suspected conditions (not mental disorders or infectious disease) (4 sources)Encounter for screening mammogram for malignant neoplasm of breast; Translations: [ENC SCR MAMMO MALIG NEOPLASM BREAST]Onset: 72-17-3844Ngcxsoon Residual codes; unclassified (1 source)Family history of malignant neoplasm of trachea, bronchus and lung; Translations: [FAM HX MALIG NEOPLSM TRACH BRON LNG]Onset: 69-93-6669Zkjzoche Results Test NameValueInterpretationReference RangeFacilityOffice Visiton 12-15-2023 Follow-up [id number] Danny Garcia 1950 F Date Provider Department Center 12/15/2023 FUNMI SESAY Family History Problem Relation Age of Onset Coronary artery disease Mother Coronary artery disease Father Family Status - Relation Status Age at Mother Father Level of Service:[id number] ID OFFICE/OUTPATIENT ESTABLISHED LOW MDM 20 [facility] 31-66-4325Fnlgtj-up visit [id number] Danny Garcia 1950 F Date Provider Department Center 06/27/2023 384RandalFUNMI THEODORE GELA Joe Family History Problem Relation Age of Onset Coronary artery disease Mother Coronary artery disease Father Family Status - Relation Status Age at Mother Father Level of Service:[id number] ID OFFICE/OUTPATIENT ESTABLISHED MOD MDM 30 MINNormal [facility] 67-89-3540Pnzaai-up visit [id number] Danny Garcia A 1950 F Date Provider Department Center 12/30/2022 384UniqueFUNMI BURNS [facility] Family History Problem Relation Age of Onset Coronary artery disease Mother Coronary artery disease Father Family Status - Relation Status Age at Mother Father Level of Service:[id number] ID OFFICE/OUTPATIENT ESTABLISHED LOW MDM 20-29 MIN Reason for Visit and Comments: Follow-up [665505] - Labs and echo, pt refused the sleep study.NormalOhio State East HospitalINSULINon 31-44-0774Algulwp4.2 uIU/mLNormal2.6-24.9The [facility] HospitalComment on above:Performed By: #### INSULIN #### [facility] [address] [place] [address] Dr. Gadiel Evans AUTO DIFFon 23-45-5996WKDQ #0.0 103/ulNormal0.0-0.1The [facility] HospitalComment on above:Performed By: #### CMP, LIPID, T7, TSH #### [facility] [address] [address] [address] Gadiel Yoophils/100 WBC (Bld)0.8 %Normal0.2-2.0The [facility] Comment on above:Performed By: #### CMP, LIPID, T7, TSH #### [facility] [address] [place] [address] Dr. Gadiel Gibbons #0.3 103/ulNormal0.0-0.7The [facility] HospitalComment on above: Performed By: #### CMP, LIPID, T7, TSH #### [facility] [address] [place] [address] Dr. Gadiel Santaosinophils/100 WBC (Bld)5.3 %Normal0.9-7.0The [facility] Comment on above:Performed By: #### CMP, LIPID, T7, TSH #### [facility] [address] [place] [address] Dr. Gadiel Santarythrocyte distribution width (RBC) [Ratio]14.0 %Qaktlt17.0-15.0 The [facility] HospitalComment on above:Performed By: #### CMP, LIPID, T7, TSH #### [facility] [address] [place] [address] Dr. Gadiel KumarHematocrit (Bld) [Volume fraction]39.1 %Jslqsa50.0-48.0The [facility] HospitalComment on above:Performed By: #### CMP, LIPID, T7, TSH #### [facility] [address] [place] [address] Dr. Gadiel KumarHemoglobin (Bld) [Mass/Vol]11.7 g/dLCritically low12.0-16.0The [facility] HospitalComment on above:Performed By: #### CMP, LIPID, T7, TSH #### [facility] [address] [place] [address] Dr. Gadiel Jon #0.02 10e3/ulNormal0.00-0.03The [facility] HospitalComment on above:Performed By: #### CMP, LIPID, T7, TSH #### [facility] [address] [place] [address] Dr. Gadiel Jon %0.4 %Normal0.0-0.5The [facility] HospitalComment on above: Performed By: #### CMP, LIPID, T7, TSH #### [facility] [address] [place] [address] Dr. Gadiel Holliday #1.1 103/ulCritically low1.2-3.8The [facility] Comment on above:Performed By: #### CMP, LIPID, T7, TSH #### [facility] [address] [place] [address] Dr. Gadiel Estradamphocytes/100 WBC (Bld)21.3 %Xrcesl17.5-60.0The [facility] HospitalComment on above:Performed By: #### CMP, LIPID, T7, TSH #### [facility] [address] [address] [address] Gadiel ElliottUAL DIFF REQNONormalThe [facility] HospitalComment on above: Performed By: #### CMP, LIPID, T7, TSH #### [facility] [address] [address] [address] Gadiel Morris (RBC) [Entitic mass]28.3 lsUwddwh65.7-34.0The [facility] HospitalComment on above:Performed By: #### CMP, LIPID, T7, TSH #### [facility] [address] [place] [address] Dr. Gadiel Morris (RBC) [Mass/Vol]29.9 g/vFMooesh34.9-35.2The [facility] HospitalComment on above:Performed By: #### CMP, LIPID, T7, TSH #### [facility] [address] [place] [address] Dr. Gadiel Morris (RBC) [Entitic vol]94.4 kNZuaquq24.0-99.0The [facility] HospitalComment on above:Performed By: #### CMP, LIPID, T7, TSH #### [facility] [address] [address] [address] Gadiel Jeffers #0.3 103/ulNormal0.3-0.8The [facility] Hospitalment on above:Performed By: #### CMP, LIPID, T7, TSH #### [facility] [address] [place] [address] Dr. Gadiel Woodwardocytes/100 WBC (Bld)6.7 %Normal1.7-12.0The [facility] Comment on above:Performed By: #### CMP, LIPID, T7, TSH #### [facility] [address] [place] [address] Dr. Gadiel Macias #3.2 103/ulNormal1.4-6.5The [facility] HospitalComment on above:Performed By: #### CMP, LIPID, T7, TSH #### [facility] [address] [place] [address] Dr. Gadiel Spenceutrophils/100 WBC (Bld)65.5 %Znertb24.0-75.0The [facility] on above:Performed By: #### CMP, LIPID, T7, TSH #### [facility] [address] [place] [address] Dr. Gadiel KumarPlatelet mean volume (Bld) [Entitic vol]12.5 fLNormal9.5-13.5The [facility] on above:Performed By: #### CMP, LIPID, T7, TSH #### [facility] [address] [place] [address] Dr. Gadiel KumarPLT160 103/faFnwvdb561-182Yue [facility] on above: Performed By: #### CMP, LIPID, T7, TSH #### [facility] [address] [place] [address] Dr. Gadiel KumarRBC4.14 106/ulCritically low4.20-5.40The [facility] on above:Performed By: #### CMP, LIPID, T7, TSH #### [facility] [address] [place] [address] Dr. Gadiel KumarWBC4.9 103/ulNormal4.0-11.0The [facility] on above: Performed By: #### CMP, LIPID, T7, TSH #### [facility] [address] [place] [address] Dr. Gadiel KumarFRDAVE THYROXINE INDEX T7on 70-36-6848WYK9.44NormalThMagruder Hospital on above:Performed By: #### CMP, LIPID, T7, TSH #### [facility] [address] [place] [address] Dr. Gadiel KumarT3U33.0 %Jslaus35.5-40.5The [facility] on above: Performed By: #### CMP, LIPID, T7, TSH #### [facility] [address] [address] [address] Gadiel KumarT4 [Mass/Vol]7.40 ug/dLNormal4.80-13.90The [facility] Comment on above:Performed By: #### CMP, LIPID, T7, TSH #### [facility] [address] [address] [address] Gadiel KumarGLYCOHEMOGLOBIN A1Con 29-59-9733VBB RECOMMENDATIONSEE BELOWOur Lady Of Mercy HospitalComment on above:Result Comment: ADA RECOMMENDED LIMIT 4.0 - 6.0 ADA THERAPEUTIC TARGET < 7.0 ACTION SUGGESTED > 7.0Performed By: #### CMP, LIPID, T7, TSH #### [facility] [address] [place] [address] Dr. Gadiel KumarGlucose [Mass/Vol]105 mg/dLNoSalem Regional Medical CenterComment on above:Performed By: #### CMP, LIPID, T7, TSH #### [facility] [address] [place] [address] Dr. Gadiel KumarHbA1c (Bld) [Mass fraction]5.3 %Normal4.5-6.2The [facility] HospitalComment on above:Performed By: #### CMP, LIPID, T7, TSH #### [facility] [address] [place] [address] Dr. Gadiel Kaufman 21-48-4987Eypo [Mass/Vol]59.0 ug/wSFvzoms77.0-170.0The [facility] HospitalComment on above:Performed By: #### CMP, LIPID, T7, TSH #### [facility] [address] [place] [address] Dr. Gadiel KumarLIPID PROFILEon 37-25-7080IBSA-HDL RATIO NORMSEE [facility] HospitalCombronson battle [facility] on above:Result Comment: 3.3 - 4.4 LOW RISK 4.4 - 7.1 AVERAGE RISK 7.1 - 11.0 MODERATE RISK >11.0 HIGH RISKPerformed By: #### CMP, LIPID, T7, TSH #### [facility] [address] [address] [address] Gadiel KumarCholesterol [Mass/Vol]193 mg/dLNormal<=200[facility] Comment on above:Performed By: #### CMP, LIPID, T7, TSH #### [facility] [address] [address] [address] Gadiel Ruizesterol in HDL [Mass/Vol]55 mg/jXHxbrjv99-83Ftl [facility] HospitalComment on above:Performed By: #### CMP, LIPID, T7, TSH #### [facility] [address] [address] [address] Gadiel Ruizesterol in LDL [Mass/Vol]120.8 mg/dLNoSalem Regional Medical CenterComment on above:Performed By: #### CMP, LIPID, T7, TSH #### [facility] [address] [address] [address] Gadiel Ruizesteromega.total/Cholesterol in HDL [Mass ratio]3.5 {ratio} NormalThe [facility] HospitalComment on above:Performed By: #### CMP, LIPID, T7, TSH #### [facility] [address] [address] [address] Gadiel Khalil NORMAL> or = 60 mg/dl - LOW CARDIOVASCULAR RISK <40 mg/dl - HIGH CARDIOVASCULAR RISKUniversity Hospitals Cleveland Medical CenterComment on above:Performed By: #### CMP, LIPID, T7, TSH #### [facility] [address] [address] [address] Gadiel KumarLDL CALC NORMALSEE BELOWUniversity Hospitals Cleveland Medical CenterComment on above:Result Comment: <100 mg/dl OPTIMAL 100 - 129 mg/dl NEAR OR ABOVE OPTIMAL 130 - 159 mg/dl BORDERLINE HIGH 160 - 189 mg/dl HIGH >190 mg/dl VERY HIGH Performed By: #### CMP, LIPID, T7, TSH #### [facility] [address] [address] [address] Gadiel KumarTriglyceride [Mass/Vol]86 mg/dLNormal<=150[facility] Comment on above:Performed By: #### CMP, LIPID, T7, TSH #### [facility] [address] [address] [address] Gadiel StoryLDL CALC17.2 mg/dLNormalThe [facility] HospitalComment on above: Performed By: #### CMP, LIPID, T7, TSH #### [facility] [address] [address] [address] Gadiel Sherman 14(COMP METB)on 72-28-7125Zmgoine [Mass/Vol]2.8 g/dL Critically low3.4-5.0The [facility] HospitalComment on above:Performed By: #### CMP, LIPID, T7, TSH #### [facility] [address] [place] [address] Dr. Gadiel KumarAlbumin/Globulin [Mass ratio]0.9 {ratio}NormalThe [facility] HospitalComment on above:Performed By: #### CMP, LIPID, T7, TSH #### [facility] [address] [place] [address] Dr. Gadiel Red [Catalytic activity/Vol]135 U/LCritically tgou27-031Xfp [facility] HospitalComment on above:Performed By: #### CMP, LIPID, T7, TSH #### [facility] [address] [place] [address] Dr. Gadiel Wood [Catalytic activity/Vol]22 U/KYfcfrc95-96Ldx [facility] HospitalComment on above:Performed By: #### CMP, LIPID, T7, TSH #### [facility] [address] [address] [address] Gadiel Valdez gap [Moles/Vol]11.0 mmol/LNormalThe [facility] on above:Performed By: #### CMP, LIPID, T7, TSH #### [facility] [address] [place] [address] Dr. Gadiel Lawson [Catalytic activity/Vol]16 U/YDlibab01-70Acj [facility] HospitalComment on above:Performed By: #### CMP, LIPID, T7, TSH #### [facility] [address] [place] [address] Dr. Yilan ChangBilirubin [Mass/Vol]0.3 mg/dLNormal0.2-1.0The [facility] Comment on above:Performed By: #### CMP, LIPID, T7, TSH #### [facility] [address] [address] [address] Gadiel KumarCalcium [Mass/Vol]8.2 mg/dLCritically low8.5-10.1The [facility] HospitalComment on above:Performed By: #### CMP, LIPID, T7, TSH #### [facility] [address] [address] [address] Gadiel KumarChloride [Moles/Vol]107 mmol/HSerguh28-368Ogp [facility] Comment on above:Performed By: #### CMP, LIPID, T7, TSH #### [facility] [address] [address] [address] Gadiel KumarCO2 [Moles/Vol]27.8 mmol/XCdlwwv23.0-32.0The [facility] Comment on above:Performed By: #### CMP, LIPID, T7, TSH #### [facility] [address] [address] [address] Gadiel KumarCreatinine [Mass/Vol]0.72 mg/dLNormal0.55-1.02The [facility] HospitalComment on above:Performed By: #### CMP, LIPID, T7, TSH #### [facility] [address] [address] [address] Gadiel SantaGFR-AF PAKISTANI>60Normal>=60The [facility] HospitalComment on above:Performed By: #### CMP, LIPID, T7, TSH #### [facility] [address] [place] [address] Dr. Gadiel SantaGFR-NON AF PAKISTANI>60Normal>=60The [facility] HospitalCombronson [facility] on above:Performed By: #### CMP, LIPID, T7, TSH #### [facility] [address] [place] [address] Dr. Gadiel KumarGlobulin (S) [Mass/Vol]3.2 g/dLNormalThe [facility] HospitalComment on above:Performed By: #### CMP, LIPID, T7, TSH #### [facility] [address] [address] [address] Gadiel KumarGlucose [Mass/Vol]88 mg/wRGvbmij26-670Tzl [facility] Comment on above:Performed By: #### CMP, LIPID, T7, TSH #### [facility] [address] [address] [address] Gadiel KumarPotassium [Moles/Vol]3.8 mmol/LNormal3.5-5.1The [facility] Comment on above:Performed By: #### CMP, LIPID, T7, TSH #### [facility] [address] [place] [address] Dr. Gadiel KumarProtein [Mass/Vol]6.0 g/dLCritically low6.1-8.2The [facility] HospitalComment on above:Performed By: #### CMP, LIPID, T7, TSH #### [facility] [address] [place] [address] Dr. Gadiel KumarSodium [Moles/Vol]142 mmol/EYsesfe283-076ArnRiverview Health Institute Comment on above:Performed By: #### CMP, LIPID, T7, TSH #### [facility] [address] [place] [address] Dr. Gadiel KumarUrea nitrogen [Mass/Vol]13.0 mg/dLNormal7.0-18.0[facility] InstituteComment on above:Performed By: #### CMP, LIPID, T7, TSH #### [facility] [address] [place] [address] Dr. Gadiel KumarUrea nitrogen/Creatinine [Mass ratio]18.1 mg/mgNormalThe [facility] HospitalComment on above:Performed By: #### CMP, LIPID, T7, TSH #### [facility] [address] [place] [address] Dr. Gadiel Hernández 87-71-1068BZL1.603 uIU/mLNormal0.470-4.680The [facility] HospitalComment on above:Performed By: #### CMP, LIPID, T7, TSH #### [facility] [address] [address] [address] Gadiel KumarGreene Memorial HospitalComment on above: Result Comment: <0.34 UIU/ml HYPERTHYROID 0.34-5.60 UIU/ml EUTHYROID >5.60 UIU/ml HYPOTHYROIDPerformed By: #### CMP, LIPID, T7, TSH #### [facility] [address] [address] [address] Gadiel KumarVITAMIN B12on 22-93-4312Cdnakglfz (Vitamin B12) [Mass/Vol]517.0 pg/gPJdobtc024.0-931.0[facility] InstituteComment on above:Performed By: #### CMP, LIPID, T7, TSH #### [facility] [address] [place] [address] Dr. Gadiel KumarXR DEXA BONE DENSITYon 46-56-7823KA DEXA BONE DENSITYEXAMINATION: XR DEXA BONE DENSITY, 09/10/2021 7:38 AM EDT HISTORY: [...] Electronically authenticated by: JUAN MARTINEZ Date: 2021-09-10 08:[address] [place], [place] [address]MG MAMM SCREEN 3D JONY CADon 90-97-1988TO MAMM SCREEN 3D JONY CAD Patient: DANNY GARCIA Exam Date: 03/21/2021 : 1950 Gender:F Ordering : [facility] Admission #: [id number] Family : Order #: [id number] CLICK HERE TO VIEW EXAM RADIOLOGY REPORT [...] lung cancer at age 62. LOCATION: [facility] BREAST COMPOSITION: Scattered areas fibroglandular density. [...] by: Juan Martinez MD on 03/21/2021 at 13:36[facility] CenterGGT on 06-03-4639Ujusc glutamyl transferase [Catalytic activity/Vol]13 U/LNormal 12-43The [facility] HospitalComment on above:Performed By: #### CMP, LIPID, T7, TSH #### [facility] [address] [place], [place] [address] Dr. Gadiel Sherman 14(COMP METB)on 10-07-2626Cgtylnn [Mass/Vol]3.2 g/dL Critically low3.5-5.0[facility] InstituteComment on above:Performed By: #### CMP #### [facility] [address] [place], [place] [id number] Katherine KarenAlbumin/Globulin [Mass ratio]0.8 {ratio}NormalThe [facility] Comment on above:Performed By: #### CMP #### [facility] [address] [place], [place] [address] Katherine KarenALP [Catalytic activity/Vol]166 U/LCritically wocm93-366Gow [facility] HospitalComment on above:Performed By: #### CMP #### [facility] [address] [place] [address] Katherien KarenALT [Catalytic activity/Vol]22 U/LNormal9-52The [facility] Comment on above:Performed By: #### CMP #### [facility] [address] [address] Katherine KarenAnion gap [Moles/Vol]12.1 mmol/LNormalRiverview Health InstituteComment on above:Performed By: #### CMP #### [facility] [address] [address] Katherine KarenAST [Catalytic activity/Vol]22 U/XFxhjhs60-33ZtsRiverview Health Institute Comment on above:Performed By: #### CMP #### [facility] [address] [address] Katherine KarenBilirubin [Mass/Vol]0.3 mg/dLNormal0.2-1.3TCleveland Clinic [facility] Comment on above:Performed By: #### CMP #### [facility] [address] [place] [address] Katherine KarenCalcium [Mass/Vol]9.0 mg/dLNormal8.4-10.2[facility] Comment on above:Performed By: #### CMP #### [facility] [address] [address] Katherine KarenChloride [Moles/Vol]104 mmol/YUyokwr16-406XzyRiverview Health Institute Comment on above:Performed By: #### CMP #### [facility] [address] [place] [address] Katherine KarenCO2 [Moles/Vol]27.1 mmol/SIfckxi17.0-30.0[facility] Comment on above:Performed By: #### CMP #### [facility] [address] [place] [address] Katherine KarenCreatinine [Mass/Vol]0.98 mg/dLNormal0.52-1.04[facility] Comment on above:Performed By: #### CMP #### [facility] [address] [place] [address] Katherine KarenEGFR-AF PAKISTANI>60Normal>=60The [facility] HospitalComment on above: Performed By: #### CMP #### [facility] [address] [place] [address] Katherine KarenEGFR-NON AF BCAKXCTZ66 mL/min/1.04w0Dggqwcraqk low>=60The [facility] HospitalComment on above:Performed By: #### CMP #### [facility] [address] [place] [address] Katherine KarenGlobulin (S) [Mass/Vol]4.1 g/dLNormThe Surgical Hospital at SouthwoodsComment on above:Performed By: #### CMP #### [facility] [address] [place] [address] Katherine KarenGlucose [Mass/Vol]103 mg/rGBjybhi08-446Klg [facility] HospitalComment on above:Performed By: #### CMP #### [facility] [address] [place] [address] Katherine KarenPotassium [Moles/Vol]4.2 mmol/LNormal3.4-5.0The [facility] Comment on above:Performed By: #### CMP #### [facility] [address] [place] [address] Katherine KarenProtein [Mass/Vol]7.3 g/dLNormal6.1-8.2The [facility] HospitalComment on above:Performed By: #### CMP #### [facility] [address] [place] [address] Katherine KarenSodium [Moles/Vol]139 mmol/PQvcwgf149-970Pqe [facility] Comment on above:Performed By: #### CMP #### [facility] [address] [place] [address] Katherine KarenUrea nitrogen [Mass/Vol]15.0 mg/dLNormal7.0-17.0The [facility] HospitalComment on above:Performed By: #### CMP #### [facility] [address] [place] [address] Katherine KarenUrea nitrogen/Creatinine [Mass ratio]15.3 mg/mgNormThe Surgical Hospital at SouthwoodsComment on above:Performed By: #### CMP #### [facility] [address] [place] [address] Katherine KarenVITAMIN B12on 79-62-3830Decrbdyyi (Vitamin B12) [Mass/Vol]787.0 pg/bSVntrrn628.0-931.0The [facility] HospitalComment on above:Performed By: #### CMP, LIPID, T7, TSH #### [facility] [address] [place] [address] Dr. Gadiel Sherman 14(COMP METB)on 06-90-5541Vunhuno [Mass/Vol]3.2 g/dL Critically low3.5-5.0The [facility] HospitalComment on above:Performed By: #### CMP #### [facility] [address] [place] [address] Katherine KarenAlbumin/Globulin [Mass ratio]0.8 {ratio}NormalRiverview Health Institute Comment on above:Performed By: #### CMP #### [facility] [address] [place] [address] Katherine KarenALP [Catalytic activity/Vol]166 U/LCritically miqn83-032Mha [facility] HospitalComment on above:Performed By: #### CMP #### [facility] [address] [place] [address] Katherine KarenALT [Catalytic activity/Vol]26 U/LNormal9-52The [facility] Comment on above:Performed By: #### CMP #### [facility] [address] [place] [address] Katherine KarenAnion gap [Moles/Vol]13.5 mmol/LNormalThe [facility] HospitalComment on above:Performed By: #### CMP #### [facility] [address] [place] [address] Katherine KarenAST [Catalytic activity/Vol]20 U/SGpktvd62-47Ykz [facility] Comment on above:Performed By: #### CMP #### [facility] [address] [place] [address] Katherine KarenBilirubin [Mass/Vol]0.5 mg/dLNormal0.2-1.3TC[facility] Comment on above:Performed By: #### CMP #### [facility] [address] [place] [address] Katherine KarenCalcium [Mass/Vol]8.9 mg/dLNormal8.4-10.2The [facility] Comment on above:Performed By: #### CMP #### [facility] [address] [place] [address] Katherine KarenChloride [Moles/Vol]104 mmol/KWeawuu62-697Mmw [facility] Comment on above:Performed By: #### CMP #### [facility] [address] [place] [address] Katherine KarenCO2 [Moles/Vol]27.2 mmol/UOdhvjw28.0-30.0The [facility] Comment on above:Performed By: #### CMP #### [facility] [address] [place] [address] Katherine KarenCreatinine [Mass/Vol]0.99 mg/dLNormal0.52-1.04The [facility] Comment on above:Performed By: #### CMP #### [facility] [address] [place] [address] Katherine KarenEGFR-AF PAKISTANI>60Normal>=60The [facility] HospitalComment on above: Performed By: #### CMP #### [facility] [address] [place] [address] Katherine KarenEGFR-NON AF WBYZPLTG57 mL/min/1.30x5Oguhroqeho low>=60The [facility] HospitalComment on above:Performed By: #### CMP #### [facility] [address] [place] [address] Katherine KarenGlobulin (S) [Mass/Vol]4.1 g/dLNormalThe [facility] HospitalComment on above:Performed By: #### CMP #### [facility] [address] [place] [address] Katherine KarenGlucose [Mass/Vol]93 mg/hYTrbwcc78-146Sty [facility] HospitalComment on above:Performed By: #### CMP #### [facility] [address] [place] [address] Ktaherine KarenPotassium [Moles/Vol]3.7 mmol/LNormal3.4-5.0The [facility] Comment on above:Performed By: #### CMP #### [facility] [address] [place] [address] Katherine KarenProtein [Mass/Vol]7.3 g/dLNormal6.1-8.2The [facility] HospitalComment on above:Performed By: #### CMP #### [facility] [address] [place] [address] Katherine KarenSodium [Moles/Vol]141 mmol/NOhpsvb390-107Otd [facility] Comment on above:Performed By: #### CMP #### [facility] [address] [place] [address] Katherine KarenUrea nitrogen [Mass/Vol]26.0 mg/dLCritically high7.0-17.0The [facility] HospitalComment on above:Performed By: #### CMP #### [facility] [address] [place] [address] Katherine KarenUrea nitrogen/Creatinine [Mass ratio]26.3 mg/mgNormalThe [facility] HospitalComment on above:Performed By: #### CMP #### [facility] [address] [place] [address] Katherine KarenVITAMIN B12on 79-99-0716Fefrheflz (Vitamin B12) [Mass/Vol]652.0 pg/cUJwxavt656.0-931.0The [facility] HospitalComment on above:Performed By: #### VITB12 #### [facility] [address] [place] [address] Katherine KarenCBC and Differentialon 24-40-8587Bas Baso0.05 k/uLNormal<0.11 [facility] HospitalComment on above:Performed By: #### HBA1C, VITD, CBCDIF, CMP, LIPB, TSH, T4FTI, IRON, B12, SERFOL, INSULN #### [facility] [address] [place], [place] [address] #### T3U #### [address] [address] [phone] Mono0.38 k/uLNormal<0.87[facility] on above:Performed By: #### HBA1C, VITD, CBCDIF, CMP, LIPB, TSH, T4FTI, IRON, B12, SERFOL, INSULN #### [place] [phone] #### T3U #### [facility] [address] [place] [address] [phone] Neut4.22 k/uLNormal1.45-7.50[facility] Shawment on above:Performed By: #### HBA1C, VITD, CBCDIF, CMP, LIPB, TSH, T4FTI, IRON, B12, SERFOL, INSULN #### [place] [phone] #### T3U #### [facility] [address] [place] [address] [phone] nRBC<0.01Normal<0.01[facility] on above:Performed By: #### HBA1C, VITD, CBCDIF, CMP, LIPB, TSH, T4FTI, IRON, B12, SERFOL, INSULN #### [place] [phone] #### T3U #### [facility] [address] [place] [address] [phone]/100 WBC (Bld)0.9 %NormalSt. Rita's Hospital on above:Performed By: #### HBA1C, VITD, CBCDIF, CMP, LIPB, TSH, T4FTI, IRON, B12, SERFOL, INSULN #### [place] [phone] #### T3U #### [facility] [address] [place] [address] [phone] DiffNormalCSumma Health on above: Performed By: #### HBA1C, VITD, CBCDIF, CMP, LIPB, TSH, T4FTI, IRON, B12, SERFOL, INSULN #### [place] [phone] #### T3U #### [address] [address] [phone] (Bld) [#/Vol]0.20 10*3/uLNormal<0.46[facility] on above:Performed By: #### HBA1C, VITD, CBCDIF, CMP, LIPB, TSH, T4FTI, IRON, B12, SERFOL, INSULN #### [place] [phone] #### T3U #### [place] [id number] [phone]/100 WBC (Bld)3.5 %NormalSt. Rita's Hospital on above:Performed By: #### HBA1C, VITD, CBCDIF, CMP, LIPB, TSH, T4FTI, IRON, B12, SERFOL, INSULN #### [place] [phone] #### T3U #### [facility] [address] [place] [address] [phone] distribution width (RBC) [Ratio]13.7 %Dddotd07.5-15.0 [facility] on above:Performed By: #### HBA1C, VITD, CBCDIF, CMP, LIPB, TSH, T4FTI, IRON, B12, SERFOL, INSULN #### [place] [phone] #### T3U #### [address] [address] [phone] (Bld) [Volume fraction]43.5 %Upeiym11.0-46.0[facility] Shawment on above:Performed By: #### HBA1C, VITD, CBCDIF, CMP, LIPB, TSH, T4FTI, IRON, B12, SERFOL, INSULN #### [place] [phone] #### T3U #### [place] [address] [phone] (Bld) [Mass/Vol]13.2 g/qWUpqyhs13.5-15.5CPremier Health Atrium Medical CenterComment on above:Performed By: #### HBA1C, VITD, CBCDIF, CMP, LIPB, TSH, T4FTI, IRON, B12, SERFOL, INSULN #### [place] [phone] #### T3U #### [place] [address] [phone] (Bld) [#/Vol]0.91 10*3/uLLow1.00-4.00[facility] HospitalComment on above:Performed By: #### HBA1C, VITD, CBCDIF, CMP, LIPB, TSH, T4FTI, IRON, B12, SERFOL, INSULN #### [place] [phone] #### T3U #### [address] [address] [phone]/100 WBC (Bld)15.7 %NormalOhiohealth [facility] Hospital Comment on above:Performed By: #### HBA1C, VITD, CBCDIF, CMP, LIPB, TSH, T4FTI, IRON, B12, SERFOL, INSULN #### [place] [phone] #### T3U #### [facility] [address] [address] [phone] (RBC) [Entitic mass]28.2 rIKqjnkb24.0-34.0[facility]ment on above:Performed By: #### HBA1C, VITD, CBCDIF, CMP, LIPB, TSH, T4FTI, IRON, B12, SERFOL, INSULN #### [place] [phone] #### T3U #### [facility] [address] [place] [address] [phone] (RBC) [Mass/Vol]30.3 g/dLLow30.5-36.0[facility] Comment on above:Performed By: #### HBA1C, VITD, CBCDIF, CMP, LIPB, TSH, T4FTI, IRON, B12, SERFOL, INSULN #### [place] [phone] #### T3U #### [place] [address] [phone] (RBC) [Entitic vol]92.9 uINnhxcq97.0-100.0[facility]ment on above:Performed By: #### HBA1C, VITD, CBCDIF, CMP, LIPB, TSH, T4FTI, IRON, B12, SERFOL, INSULN #### [place] [phone] #### T3U #### [facility] [address] [place] [address] [phone]/100 WBC (Bld)6.6 %NormalSelect Medical [facility] Clinic [facility] Hospital, Edwin Shawment on above:Performed By: #### HBA1C, VITD, CBCDIF, CMP, LIPB, TSH, T4FTI, IRON, B12, SERFOL, INSULN #### [place] [phone] #### T3U #### [facility] [address] [place] [address] [phone]/100 WBC (Bld)73.3 %NormalOhiohealth [facility]ering[facility] Hospital Comment on above:Performed By: #### HBA1C, VITD, CBCDIF, CMP, LIPB, TSH, T4FTI, IRON, B12, SERFOL, INSULN #### [facility] [address] [place] [phone] #### T3U #### [facility] [address] [place] [address] [phone] /100 DRYKxquaf9GuyqzdfarSelect Medical [facility] Hospital, [facility] Shawment on above: Performed By: #### HBA1C, VITD, CBCDIF, CMP, LIPB, TSH, T4FTI, IRON, B12, SERFOL, INSULN #### [place] [address] [place] [phone] #### T3U #### [place] [address] [phone] mean volume (Bld) [Entitic vol]14.1 fLHigh9.0-12.7CPaulding County Hospitalment on above:Performed By: #### HBA1C, VITD, CBCDIF, CMP, LIPB, TSH, T4FTI, IRON, B12, SERFOL, INSULN #### [facility] [address] [place] [address] #### T3U #### [facility] [address] [place] [address] [phone] (Bld) [#/Vol]177 10*3/pYYygssw765-726CreuuwpllSt. [facility]'s Hospital on above:Result Comment: Result checked and verified No clot detected.Performed By: #### HBA1C, VITD, CBCDIF, CMP, LIPB, TSH, T4FTI, IRON, B12, SERFOL, INSULN #### [facility] [address] [place] [address] #### T3U #### [facility] [address] [place] [address] [phone] (Bld) [#/Vol]4.68 10*6/uLNormal3.90-5.20[facility]ment on above:Performed By: #### HBA1C, VITD, CBCDIF, CMP, LIPB, TSH, T4FTI, IRON, B12, SERFOL, INSULN #### [place] [phone] #### T3U #### [facility] [address] [place] [address] [phone] (Bld) [#/Vol]5.78 10*3/uLNormal3.70-11.00[facility]ment on above:Performed By: #### HBA1C, VITD, CBCDIF, CMP, LIPB, TSH, T4FTI, IRON, B12, SERFOL, INSULN #### [place] [phone] #### T3U #### [facility] [address] [place] [address] [phone] [phone] [Mass/Vol]98.8 ng/eCTswmpd91.7-205.1 [facility] on above:Performed By: #### HBA1C, VITD, CBCDIF, CMP, LIPB, TSH, T4FTI, IRON, B12, SERFOL, INSULN #### [place] [phone] #### T3U #### [facility] [address] [place] [address] [phone] and TIBCon 11-88-4140Pnmm [Mass/Vol]64 ug/zLHjxily79-091 [facility] on above:Performed By: #### HBA1C, VITD, CBCDIF, CMP, LIPB, TSH, T4FTI, IRON, B12, SERFOL, INSULN #### [facility] [address] [place] [phone] #### T3U #### [facility] [address] [place] [address] [phone] ug/bRPqkufa353-526ZokajzskzSt. Rita's Hospital on above: Performed By: #### HBA1C, VITD, CBCDIF, CMP, LIPB, TSH, T4FTI, IRON, B12, SERFOL, INSULN #### [facility] [address] [place] [phone] #### T3U #### [facility] [address] [place] [address] [phone] Ebxzbrik01 %Hzkurb28-06LrqxpjwroSt. Rita's Hospital on above:Performed By: #### HBA1C, VITD, CBCDIF, CMP, LIPB, TSH, T4FTI, IRON, B12, SERFOL, INSULN #### [place] [address] [place] [phone] #### T3U #### [facility] [address] [place] [address] [phone] B12on 57-86-3667Btjkbycmc (Vitamin B12) [Mass/Vol]396 pg/mL Pvzxwq734-6650KhojbutnzSumma Health on above:Performed By: #### HBA1C, VITD, CBCDIF, CMP, LIPB, TSH, T4FTI, IRON, B12, SERFOL, INSULN #### [facility] [address] [place] [phone] #### T3U #### [facility] [address] [place] [address] [phone] and Differentialon 28-44-1862Egm Baso0.04 k/uLNormal<0.11 [facility] on above:Performed By: #### HBA1C, VITD, CBCDIF, CMP, LIPB, TSH, T4FTI, IRON, B12, SERFOL, INSULN #### [place] [phone] #### T3U #### [facility] [address] [place] [address] [phone] Mono0.32 k/uLNormal<0.87[facility] Shawment on above:Performed By: #### HBA1C, VITD, CBCDIF, CMP, LIPB, TSH, T4FTI, IRON, B12, SERFOL, INSULN #### [place] [phone] #### T3U #### [place] [address] [phone] Neut3.40 k/uLNormal1.45-7.50[facility]ment on above:Performed By: #### HBA1C, VITD, CBCDIF, CMP, LIPB, TSH, T4FTI, IRON, B12, SERFOL, INSULN #### [place] [phone] #### T3U #### [place] [address] [phone] nRBC<0.01Normal<0.01[facility]ment on above:Performed By: #### HBA1C, VITD, CBCDIF, CMP, LIPB, TSH, T4FTI, IRON, B12, SERFOL, INSULN #### [place] [phone] #### T3U #### [place] [address] [phone]/100 WBC (Bld)0.8 %NormalSt. Rita's Hospital on above:Performed By: #### HBA1C, VITD, CBCDIF, CMP, LIPB, TSH, T4FTI, IRON, B12, SERFOL, INSULN #### [place] [phone] #### T3U #### [facility] [address] [place] [address] [phone] DiffNormalCSumma Health on above: Performed By: #### HBA1C, VITD, CBCDIF, CMP, LIPB, TSH, T4FTI, IRON, B12, SERFOL, INSULN #### [place] [phone] #### T3U #### [facility] [address] [place] [address] [phone] (Bld) [#/Vol]0.21 10*3/uLNormal<0.46[facility] on above:Performed By: #### HBA1C, VITD, CBCDIF, CMP, LIPB, TSH, T4FTI, IRON, B12, SERFOL, INSULN #### [place] [phone] #### T3U #### [facility] [address] [place] [address] [phone]/100 WBC (Bld)4.3 %NormalSt. Rita's Hospital on above:Performed By: #### HBA1C, VITD, CBCDIF, CMP, LIPB, TSH, T4FTI, IRON, B12, SERFOL, INSULN #### [place] [phone] #### T3U #### [facility] [address] [place] [address] [phone] distribution width (RBC) [Ratio]13.5 %Mprlob45.5-15.0 [facility] on above:Performed By: #### HBA1C, VITD, CBCDIF, CMP, LIPB, TSH, T4FTI, IRON, B12, SERFOL, INSULN #### [place] [phone] #### T3U #### [facility] [address] [place] [address] [phone] (Bld) [Volume fraction]44.0 %Ebpzem73.0-46.0[facility] HospitalComment on above:Performed By: #### HBA1C, VITD, CBCDIF, CMP, LIPB, TSH, T4FTI, IRON, B12, SERFOL, INSULN #### [facility] [phone] #### T3U #### [facility] [address] [place] [address] [phone] (Bld) [Mass/Vol]13.1 g/jPAhdvyc75.5-15.5CPremier Health Atrium Medical CenterComment on above:Performed By: #### HBA1C, VITD, CBCDIF, CMP, LIPB, TSH, T4FTI, IRON, B12, SERFOL, INSULN #### [place] [address] [place] [phone] #### T3U #### [facility] [address] [place] [address] [phone] (Bld) [#/Vol]0.90 10*3/uLLow1.00-4.00[facility] HospitalComment on above:Performed By: #### HBA1C, VITD, CBCDIF, CMP, LIPB, TSH, T4FTI, IRON, B12, SERFOL, INSULN #### [facility] [address] [place] [phone] #### T3U #### [facility] [address] [place] [address] [phone]/100 WBC (Bld)18.4 %NormalOhiohealth Pickerington Methodist Hospital Comment on above:Performed By: #### HBA1C, VITD, CBCDIF, CMP, LIPB, TSH, T4FTI, IRON, B12, SERFOL, INSULN #### [place] [phone] #### T3U #### [facility] [address] [place] [address] [phone] (RBC) [Entitic mass]28.1 tTQhtolh73.0-34.0[facility] HospitalComment on above:Performed By: #### HBA1C, VITD, CBCDIF, CMP, LIPB, TSH, T4FTI, IRON, B12, SERFOL, INSULN #### [place] [phone] #### T3U #### [address] [address] [phone] (RBC) [Mass/Vol]29.8 g/dLLow30.5-36.0[facility] Comment on above:Performed By: #### HBA1C, VITD, CBCDIF, CMP, LIPB, TSH, T4FTI, IRON, B12, SERFOL, INSULN #### [place] [address] #### T3U #### [facility] [address] [place] [address] [phone] (RBC) [Entitic vol]94.4 kMLmlsig96.0-100.0[facility] HospitalComment on above:Performed By: #### HBA1C, VITD, CBCDIF, CMP, LIPB, TSH, T4FTI, IRON, B12, SERFOL, INSULN #### [place] [address] #### T3U #### [address] [address] [phone]/100 WBC (Bld)6.5 %NormalOhiohealth Pickerington Methodist HospitalComment on above:Performed By: #### HBA1C, VITD, CBCDIF, CMP, LIPB, TSH, T4FTI, IRON, B12, SERFOL, INSULN #### [place] [phone] #### T3U #### [facility] [address] [place] [address] [phone]/100 WBC (Bld)70.0 %NormalOhiohealth Pickerington Methodist Hospital Comment on above:Performed By: #### HBA1C, VITD, CBCDIF, CMP, LIPB, TSH, T4FTI, IRON, B12, SERFOL, INSULN #### [place] [phone] #### T3U #### [facility] [address] [place] [address] [phone] /100 HYPKpyjdu4YooeltyrdSelect Medical [facility] Clinic [facility] Hospital, Edwin Shawment on above: Performed By: #### HBA1C, VITD, CBCDIF, CMP, LIPB, TSH, T4FTI, IRON, B12, SERFOL, INSULN #### [place] [address] #### T3U #### [facility] [address] [place] [address] [phone] mean volume (Bld) [Entitic vol]13.7 fLHigh9.0-12.7CPremier Health Atrium Medical CenterComment on above:Performed By: #### HBA1C, VITD, CBCDIF, CMP, LIPB, TSH, T4FTI, IRON, B12, SERFOL, INSULN #### [address] [address] #### T3U #### [facility] [address] [place] [address] [phone] (Bld) [#/Vol]162 10*3/sYZipjdz197-867OxjtjfrazSt. Rita's Hospital on above:Result Comment: Result checked and verified No clot detected.Performed By: #### HBA1C, VITD, CBCDIF, CMP, LIPB, TSH, T4FTI, IRON, B12, SERFOL, INSULN #### [facility] [address] [place] [address] #### T3U #### [facility] [address] [place] [address] [phone] (Bld) [#/Vol]4.66 10*6/uLNormal3.90-5.20[facility] on above:Performed By: #### HBA1C, VITD, CBCDIF, CMP, LIPB, TSH, T4FTI, IRON, B12, SERFOL, INSULN #### [place] [address] [place] [phone] #### T3U #### [address] [address] [phone] (Bld) [#/Vol]4.89 10*3/uLNormal3.70-11.00[facility] on above:Performed By: #### HBA1C, VITD, CBCDIF, CMP, LIPB, TSH, T4FTI, IRON, B12, SERFOL, INSULN #### [place] [address] [place] [phone] #### T3U #### [facility] [address] [place] [address] [phone] Metabolic Panelon 65-88-0528Dtcfymh [Mass/Vol]3.9 g/dLNormal 3.9-4.9CSumma Health on above:Performed By: #### HBA1C, VITD, CBCDIF, CMP, LIPB, TSH, T4FTI, IRON, B12, SERFOL, INSULN #### [place] [address] [place] [phone] #### T3U #### [facility] [address] [place] [address] [phone] [Catalytic activity/Vol]140 U/FZyvb22-694UcfdrwskaSt. Rita's Hospital on above:Performed By: #### HBA1C, VITD, CBCDIF, CMP, LIPB, TSH, T4FTI, IRON, B12, SERFOL, INSULN #### [place] [phone] #### T3U #### [address] [address] [phone] [Catalytic activity/Vol]28 U/LNormal7-38[facility] Shaw[facility] on above:Performed By: #### HBA1C, VITD, CBCDIF, CMP, LIPB, TSH, T4FTI, IRON, B12, SERFOL, INSULN #### [place] [phone] #### T3U #### [place] [address] [phone] gap [Moles/Vol]8 mmol/LLow9-18[facility] HospitalComment on above:Performed By: #### HBA1C, VITD, CBCDIF, CMP, LIPB, TSH, T4FTI, IRON, B12, SERFOL, INSULN #### [place] [phone] #### T3U #### [place] [address] [phone] [Catalytic activity/Vol]28 U/LFixevl45-30TtmfffneySt. Rita's Hospital on above:Performed By: #### HBA1C, VITD, CBCDIF, CMP, LIPB, TSH, T4FTI, IRON, B12, SERFOL, INSULN #### [place] [phone] #### T3U #### [place] [address] [phone] [Mass/Vol]0.2 mg/dLNormal0.2-1.3CPremier Health [facility]rium [facility] Comment on above:Performed By: #### HBA1C, VITD, CBCDIF, CMP, LIPB, TSH, T4FTI, IRON, B12, SERFOL, INSULN #### [facility] [address] [place] [phone] #### T3U #### [facility] [address] [address] [phone] [Mass/Vol]9.4 mg/dLNormal8.5-10.2CPremier Health Atrium Medical Center Comment on above:Performed By: #### HBA1C, VITD, CBCDIF, CMP, LIPB, TSH, T4FTI, IRON, B12, SERFOL, INSULN #### [place] [phone] #### T3U #### [address] [address] [phone] [Moles/Vol]101 mmol/XJbkkqh51-160BxtynlrthOhiohealth Pickerington Methodist Hospital Comment on above:Performed By: #### HBA1C, VITD, CBCDIF, CMP, LIPB, TSH, T4FTI, IRON, B12, SERFOL, INSULN #### [place] [address] [place] [phone] #### T3U #### [address] [address] [phone] [Moles/Vol]30 mmol/KKaibzp17-56BnlcandfdOhiohealth Pickerington Methodist HospitalComment on above:Performed By: #### HBA1C, VITD, CBCDIF, CMP, LIPB, TSH, T4FTI, IRON, B12, SERFOL, INSULN #### [place] [address] [place] [phone] #### T3U #### [address] [address] [phone] [Mass/Vol]0.83 mg/dLNormal0.58-0.96[facility] HospitalComment on above:Performed By: #### HBA1C, VITD, CBCDIF, CMP, LIPB, TSH, T4FTI, IRON, B12, SERFOL, INSULN #### [facility] [address] [place] [phone] #### T3U #### [facility] [address] [place] [address] [phone]- Amer.>60NormalCSumma Health on above:Performed By: #### HBA1C, VITD, CBCDIF, CMP, LIPB, TSH, T4FTI, IRON, B12, SERFOL, INSULN #### [facility] [address] [place] [phone] #### T3U #### [address] [address] [phone]/1.73 sq M predicted among non-blacks MDRD (S/P/Bld) [Vol rate/Area]mL/min/{1.73_m2}NormalOhiohealth Pickerington Methodist HospitalComment on above: Result Comment: eGFR (Estimated GFR) Units of measure: mL/min/1.73 meters squared eGFR is derived from the reexpressed MDRD Study equation using the following parameters: serum creatinine, age, gender and race. The creatinine assay has been calibrated to be traceable to IDMS. An eGFR <60 mL/min/1.73m2 for >3 months is consistent with chronic kidney disease. Refer to KDOQI guidelines for clinical interpretation. In patients with unstable renal function, e.g. those with acute kidney injury, the eGFR may not accurately reflect actual GFR.Performed By: #### HBA1C, VITD, CBCDIF, CMP, LIPB, TSH, T4FTI, IRON, B12, SERFOL, INSULN #### [facility] [address] [place], [place] [address] #### T3U #### [address] [address] [phone] [Mass/Vol]90 mg/iRCkpecv80-67HrkzxqahrOhiohealth Pickerington Methodist Hospital Comment on above:Result Comment: The [place] Diabetes Association (ADA) provides guidance for cutoff [...] Standards of Medical Care in Diabetes 2016, [place] Diabetes Association. Diabetes Care. 2016.39(Suppl 1).Performed By: #### HBA1C, VITD, CBCDIF, CMP, LIPB, TSH, T4FTI, IRON, B12, SERFOL, INSULN #### [place] [phone] #### T3U #### [facility] [place] [id number] [phone] [Moles/Vol]4.9 mmol/LNormal3.7-5.1CPremier Health Atrium Medical CenterComment on above:Performed By: #### HBA1C, VITD, CBCDIF, CMP, LIPB, TSH, T4FTI, IRON, B12, SERFOL, INSULN #### [place] [phone] #### T3U #### [facility] [address] [place] [id number] [phone] [Mass/Vol]6.8 g/dLNormal6.3-8.0[facility] Comment on above:Performed By: #### HBA1C, VITD, CBCDIF, CMP, LIPB, TSH, T4FTI, IRON, B12, SERFOL, INSULN #### [place] [phone] #### T3U #### [facility] [address] [place] [address] [phone] [Moles/Vol]139 mmol/LJeheww233-604DekkbjvrrOhiohealth Pickerington Methodist Hospital Comment on above:Performed By: #### HBA1C, VITD, CBCDIF, CMP, LIPB, TSH, T4FTI, IRON, B12, SERFOL, INSULN #### [facility] [address] [place] [address] #### T3U #### [facility] [address] [place], [place] [id number] [phone] nitrogen [Mass/Vol]14 mg/dLNormal7-21[facility] Comment on above:Performed By: #### HBA1C, VITD, CBCDIF, CMP, LIPB, TSH, T4FTI, IRON, B12, SERFOL, INSULN #### [place] [address] [place] [address] #### T3U #### [facility] [address] [id number] [phone], Serumon 91-50-6632Tnistf [Mass/Vol]ng/mLNormal>4.7CPremier Health Atrium Medical CenterComment on above:Result Comment: A result of > 20 ng/mL is not necessarily indicative of a pathologic or treatable condition: it reflects a limitation of the test methodology. Assay reference range: 4.8 to 24.2 ng/mL. Suitable for detection of folate deficiency. Reference: Folate III (Folate III) [package insert V 2.0 Turkmen]. [employer], [place], [place]: March 2015.Performed By: #### HBA1C, VITD, CBCDIF, CMP, LIPB, TSH, T4FTI, IRON, B12, SERFOL, INSULN #### [place] [address] [place] [address] #### T3U #### [facility] [address] [place], [place] [id number] [phone] A1con 57-38-0387YmJ3k (Bld) [Mass fraction]5.4 %Normal 4.3-5.6CPremier Health Atrium Medical CenterCombronson battle creek hospital on above:Result Comment: [place] Diabetes Association guidelines indicate that patients with HgbA1c in the range 5.7-6.4% are at increased risk for development of diabetes, and intervention by lifestyle modification may be beneficial. HgbA1c greater or equal to 6.5% is considered diagnostic of diabetes.Performed By: #### HBA1C, VITD, CBCDIF, CMP, LIPB, TSH, T4FTI, IRON, B12, SERFOL, INSULN #### [place] [address] [place] [phone] #### T3U #### [facility] [address] [place] [address] [phone] (Bld) [Mass fraction]108 mg/dLNormalCPremier Health Atrium Medical Center Comment on above:Result Comment: eAG: (Estimated average glucose) is a calculated value from HgbA1c and is union contract representative of the average blood glucose level in the last 2-3 month period.Performed By: #### HBA1C, VITD, CBCDIF, CMP, LIPB, TSH, T4FTI, IRON, B12, SERFOL, INSULN #### [place] [phone] #### T3U #### [facility] [address] [place] [address] [phone] 49-44-8549Opecgsy0.0 mU/LNormal3.0-25.0Ohio[facility] Pickerington Methodist HospitalComment on above:Performed By: #### HBA1C, VITD, CBCDIF, CMP, LIPB, TSH, T4FTI, IRON, B12, SERFOL, INSULN #### [facility] [address] [place] [address] #### T3U #### [facility] [address] [place], [place] [id number] [phone] and TIBCon 33-49-8999Cbwa [Mass/Vol]57 ug/qUCkedtm93-843 [facility] HospitalComment on above:Performed By: #### HBA1C, VITD, CBCDIF, CMP, LIPB, TSH, T4FTI, IRON, B12, SERFOL, INSULN #### [place] [address] [place] [phone] #### T3U #### [facility] [address] [place] [address] [phone] ug/dHAkvzan844-485RedqlqrcfSt. Rita's Hospital on above: Performed By: #### HBA1C, VITD, CBCDIF, CMP, LIPB, TSH, T4FTI, IRON, B12, SERFOL, INSULN #### [place] [phone] #### T3U #### [facility] [address] [place] [address] [phone] Cinkdvuj69 %Jalpeg08-24GixgfjguoSt. Rita's Hospital on above:Performed By: #### HBA1C, VITD, CBCDIF, CMP, LIPB, TSH, T4FTI, IRON, B12, SERFOL, INSULN #### [place] [phone] #### T3U #### [facility] [address] [place] [address] [phone] Panel, Basicon [phone] [Mass/Vol]230 mg/dLHigh <200St[facility] on above:Result Comment: <200 mg/dL, Desirable 200-239 mg/dL, Borderline high >239 mg/dL, HighPerformed By: #### HBA1C, VITD, CBCDIF, CMP, LIPB, TSH, T4FTI, IRON, B12, SERFOL, INSULN #### [place] [address] #### T3U #### [facility] [address] [place], [place] [id number] [phone] in HDL [Mass/Vol]57 mg/dLNormal>39[facility] on above:Result Comment: 40-59 mg/dL, Acceptable >59 mg/dL, High: Negative risk factor for coronary heart disease <40 mg/dL, Low: Positive risk factor for coronary heart diseasePerformed By: #### HBA1C, VITD, CBCDIF, CMP, LIPB, TSH, T4FTI, IRON, B12, SERFOL, INSULN #### [place] [address] [place] [phone] #### T3U #### [facility] [address] [place] [address] [phone] in LDL [Mass/Vol]156 mg/dLHigh<100[facility] on above:Result Comment: <100 mg/dL, Optimal 100-129 mg/dL, Near optimal/above optimal 130-159 mg/dL, Borderline high 160-189 mg/dL, High >189 mg/dL, Very high Secondary prevention optimal LDL Cholesterol levels are recommended to be < 70 mg/dLPerformed By: #### HBA1C, VITD, CBCDIF, CMP, LIPB, TSH, T4FTI, IRON, B12, SERFOL, INSULN #### [place] [phone] #### T3U #### [facility] [address] [place] [address] [phone] TimeUnknownNormalSt. Rita's Hospital on above: Performed By: #### HBA1C, VITD, CBCDIF, CMP, LIPB, TSH, T4FTI, IRON, B12, SERFOL, INSULN #### [place] [phone] #### T3U #### [facility] [address] [place] [address] [phone]:HDL Ratio2.74High<2.54[facility] on above: Result Comment: Reference: 1. National Cholesterol Education Program ATP III Guideline At-A-Glance Quick Desk Reference: National Heart, Lung, and Blood [place]. National Institutes of Health. 2001: NIH Publication No. 01-3305. 2. An International Atherosclerosis Society position paper: global recommendations for the management of dyslipidemia: executive summary, Atherosclerosis. 2014: 232(2):410-413.Performed By: #### HBA1C, VITD, CBCDIF, CMP, LIPB, TSH, T4FTI, IRON, B12, SERFOL, INSULN #### [facility] [address] [place] [phone] #### T3U #### [address] [address] [phone] HDL Nruybwejtaq114 mg/dLHigh<130Ohiohealth Pickerington Methodist HospitalComment on above:Result Comment: <130 mg/dL, Optimal 130-159 mg/dL, Near optimal/above optimal 160-189 mg/dL, Borderline high 190-219 mg/dL, High >219 mg/dL, Very high Secondary prevention optimal non HDL Cholesterol levels are recommended to be < 100 mg/dLPerformed By: #### HBA1C, VITD, CBCDIF, CMP, LIPB, TSH, T4FTI, IRON, B12, SERFOL, INSULN #### [place] [address] [place] [phone] #### T3U #### [address] [address] [phone]:HDL Ratio4.04Normal<5.10Ohio[facility] Pickering[facility] Methodist HospitalComment on above:Performed By: #### HBA1C, VITD, CBCDIF, CMP, LIPB, TSH, T4FTI, IRON, B12, SERFOL, INSULN #### [place] [address] [place] [phone] #### T3U #### [facility] [address] [place] [address] [phone] [Mass/Vol]86 mg/dLNormal<150[facility] Comment on above:Result Comment: <150 mg/dL, Normal 150-199 mg/dL, Borderline high 200-499 mg/dL, High >499 mg/dL, Very highPerformed By: #### HBA1C, VITD, CBCDIF, CMP, LIPB, TSH, T4FTI, IRON, B12, SERFOL, INSULN #### [facility] [address] [place] [phone] #### T3U #### [address] [address] [phone] Bbngefejugj00 mg/dLNormal<30[facility] on above:Performed By: #### HBA1C, VITD, CBCDIF, CMP, LIPB, TSH, T4FTI, IRON, B12, SERFOL, INSULN #### [place] [phone] #### T3U #### [address] [id number] [phone] Uptake DO NOT ORDER ON [facility] PATIENTSon 16-53-4992C3 Uzpdns61 % Npnixo98-14JmjmvwsilSt. Rita's Hospital on above:Result Comment: (NOTE) INTERPRETIVE INFORMATION: T3 Uptake Thyroxine, Free (Free T4) (7461950) is the preferred test alternative for the T3 uptake and Free Thyroxine Index tests. Performed by [employer], [address] [place] [id number] [email or web address], Hebert De Santiago MD, Lab. DirectorPerformed By: #### HBA1C, VITD, CBCDIF, CMP, LIPB, TSH, T4FTI, IRON, B12, SERFOL, INSULN #### [place] [address] [place] [phone] #### T3U #### [address] [address] [phone]/FTIon 56-90-3269HAZ3.8 ug/dLNormal5.3-10.8CSumma Health on above:Performed By: #### HBA1C, VITD, CBCDIF, CMP, LIPB, TSH, T4FTI, IRON, B12, SERFOL, INSULN #### [facility] [address] [place] [phone] #### T3U #### [facility] [address] [place] [address] [phone] [Mass/Vol]7.2 ug/dLNormal5.5-10.2CSumma Health on above:Performed By: #### HBA1C, VITD, CBCDIF, CMP, LIPB, TSH, T4FTI, IRON, B12, SERFOL, INSULN #### [facility] [address] [place] [phone] #### T3U #### [facility] [address] [place] [address] [phone] Uptake1.22Dgxixm2.91-1.19[facility] on above:Performed By: #### HBA1C, VITD, CBCDIF, CMP, LIPB, TSH, T4FTI, IRON, B12, SERFOL, INSULN #### [facility] [employer] [facility] [place] [phone] #### T3U #### [facility] [address] [place] [address] [phone] 93-82-7639JOT Qn4.220 uU/mLHigh0.270-4.200[facility] on above:Performed By: #### HBA1C, VITD, CBCDIF, CMP, LIPB, TSH, T4FTI, IRON, B12, SERFOL, INSULN #### [place] [address] [place] [phone] #### T3U #### [facility] [address] [place] [address] [phone] B12on 97-39-5257Qdtrnsatg (Vitamin B12) [Mass/Vol]353 pg/mL Urrlsk759-6885IfiqalqbjSumma Health on above:Performed By: #### HBA1C, VITD, CBCDIF, CMP, LIPB, TSH, T4FTI, IRON, B12, SERFOL, INSULN #### [facility] [employer] [facility] [place] [phone] #### T3U #### [facility] [address] [place] [address] [phone] D 25 Hydroxyon 67-83-9372Umvzwgi D 25 Gjkjaco58.1 ng/mLNormal 31.0-80.0[facility] on above:Result Comment: Classification of 25 [place] Vitamin D status: Insufficiency/Moderate Deficiency: < or = 30 ng/mL Sufficiency/Optimal Levels: 31 to 80 ng/mL Toxicity: > 100 ng/mL Test performed by chemiluminescent immunoassay.Performed By: #### HBA1C, VITD, CBCDIF, CMP, LIPB, TSH, T4FTI, IRON, B12, SERFOL, INSULN #### [facility] [address] [place], [place] [address] #### T3U #### [facility] [address] [place] [address] [phone] Encounters Encounter DateEncounter Type[facility] ProviderFacilityStart: 12-15-2023 End: 31-56-7296ywolilmiehWOIDBJMKettering Health [facility] Start: 06-27-2023 End: 69-85-8120syikmzslgsAOGGLAQWestern [facility] Hospital Start: 12-30-2022 End: 34-22-4484jgiikylhgcMSKOKCJKettering Health [facility] Start: 09-10-2021 End: 40-15-3296omjhptnsjzFBQKER ALLENFacility:G6Dltss: 03-21-2021 End: 16-92-5970uhthzchyonPAMHBD ALLENFacility:K1Hdhbw: 02-53-8420ucfeplezcf AARON ALLENFacility:X2Qdmjc: 10-09-2020 End: 81-70-4427khyvyxiokhKXRYJR ALLENFacility:V5Fnrhq: 09-22-2020 End: 87-44-8470ccznplpeijVCPVJB ALLENFacility:H1 Procedures DateProcedureProcedure DetailPerforming ClinicianStart: 52-48-8034Ukxvbh-up visitFollow-upMOLTAC, [facility] Payers DatePayer CategoryPayerPolicy [id number] 1960Medicare [id number] Progress note 12-15-2023 Note Date & YklhRspsXbfnpzwm16-79-0819 NoteUT [facility] SUBJECTIVE Danny Garcia is a 73 y.o. female here for follow-up. HPI Ms. Garcia Presents to cardiology clinic for routine follow-up for hypertension, hyperlipidemia, and PVC's. She denies chest pain, SOB, palpitations, and lightheadedness/syncope. C/o arthritis pain in her left hand, but no cardiac complaints. Patient denies any chest pain or shortness of breath. Patient denies any lower extremity edema, orthopnea, or proximal nocturnal dyspnea. No near-syncope or syncope. No dizziness or lightheadedness. Patient Active Problem List Diagnosis B12 deficiency [...] specified in HPI OBJECTIVE Visit Vitals BP 134/88 (BP Location: Right arm, Patient Position: Sitting) Pulse 73 Ht 1.549 m (5' 1 ) Wt 130 kg (286 lb) SpO2 95% BMI 54.04 kg/m??? Smoking Status Never BSA 2.37 m??? Medications: Current Outpatient Medications: carvedilol (Coreg) [...] PVCs ASSESSMENT/PLAN: #HTN -BP Is well controlled at home per patient. Continue Coreg 12.5 mg twice daily and chlorthalidone 25 mg daily -Patient instructed to check daily blood pressure at home 2 hours after taking medication. Patient is instructed to maintain daily blood pressure log. Patient is to contact cardiology if blood pressures above discuss target range. Patient voices understanding. -Reminded patient of importance of heart healthy [...] modification -Plan of care discussed with patient. Al (more content not included)... [facility] Progress note 06-27-2023 Note Date & KmqsSoqyJncjxvib99-19-2632 NotePatient here for 6 mo follow up hyperlipidemia, hypertension, and PVC's. She had lipid profile done in Mar 2023. Denies chest pain, SOB, and palpitations. She's doing very well and has no cardiac complaints at this time. Review of Systems Constitutional: Positive for malaise/fatigue. Musculoskeletal: Positive for arthritis, joint pain and myalgias. All other systems reviewed and are negative.[facility] Progress note 06-27-2023 Note Date & JggmExasDmlounmp32-18-3575 NoteUT [facility] Note SUBJECTIVE Danny Garcia is a 72 y.o. female here for follow-up. HPI Ms. Garcia Presents to cardiology clinic for routine follow-up. [...] understanding -Follow-up in cardiology (more content not included)...[facility] Progress note 12-30-2022 Note Date & QphaDeqkXjpmdetl87-01-2846 NoteSUBJECTIVE Chief Complaint Patient presents with Follow-up Labs and echo, pt refused the sleep study. Danny Garcia is a 72 y.o. female here for [...] current plan. -Patient was (more content not included)...[facility] Summary Purpose Family History No Family History Records FoundNo Family History Records FoundNo Family History Records Found Advance Directives No Advanced Directives Records FoundNo Advanced Directives Records FoundNo Advanced Directives Records Found Additional Source Comments INFORMATION SOURCE (unrecogn ized section and content) DATE CREATED AUTHOR 04/24/2019 [facility] DATE CREATED AUTHOR AUTHOR'S ORGANIZ ATION 09/13/2021 [facility] DATE CREATED AUTHOR AUTHOR'S ORGANIZ ATION 12/16/2023 [facility] FOR RECORDS PERTAINING TO PATIENTS WHO [...] BE BASED ON THE PRIMARY CLINICAL RECORDS. [employer] provides no warranty or guarantee of the accuracy or completeness of information in this document.
--- OUTSIDE RECORDS SUMMARY | 2025-04-04 07:37 | XMS_ITS | Clinical Summary ---
Author Organization [facility] Address [address] [place] [id number] Care Team Providers Care Dairy Nutrition Consultant Name Role Phone Unavailable Primary Care Provider Unavailabl e Allergies Active AllergyReactionsCriticalityNoted DateCommentsTetanus Vaccines And Toxoid Sevzhinezzv59/13/2015 Fever,chills achy. Medications MedicationSigDispense QuantityRefillsLast FilledStart DateEnd DateStatus FA/MV,CA,IRON,MIN/LYCOPENE/LUT (MULTIVITAL ORAL) Take by mouth.Active CALCIUM CARBONATE (CALTRATE 600 ORAL) Take 1 tablet by mouth once daily.Active Active Problems ProblemNoted DateDiagnosed DateB12 obsefasnaa27/13/2015Iron /13/2015 S/P gastric nudneg1207/01/2014 Social History Tobacco UseTypesPacks/DayYears UsedDateSmoking Tobacco: NeverSmokeless Tobacco: NeverAlcohol UseStandard Drinks/WeekCommentsNo0 (1 standard drink = 0.6 oz pure alcohol)Area Deprivation IndexAnswerDate RecordedNational Score (1-100), lower number is lower riskNot on file04/26/2020State Score (1-10), lower number is lower riskNot on file04/26/2020Data from: https://www.neighborhoodatlas.medicine.[facility].edu/. Last address used for calculationNot on file04/26/2020CommentsNoSex and Gender Information ValueDate RecordedSex Assigned at BirthNot on fileLegal VroNkdpjo87/12/2015 1:19 PM ESTGender IdentityNot on fileSexual OrientationNot on file Last Filed Vital Signs Vital SignReadingTime TakenCommentsBlood Ykjkclrf328/8706 9:51 AM EDT Ofnra1397 9:51 AM XNNJpumunhsuiw03.8 ??C (98.2 ??F)10/31/2015 9:51 AM EDTRespiratory Uyio786510/31/2015 9:51 AM EDTOxygen Saturation--Inhaled Oxygen Concentration--Zvttdo936.4 kg (252 lb 3.2 oz)04/28/2015 12:59 PM GLNElsvjq027.5 cm (5' 2.01 )04/28/2015 12:59 PM ESTBody Mass Index46.11106/29/2014 12:59 PM EST Plan of Treatment Health MaintenanceDue DateLast DoneCommentsAnxiety Lluobvhbw09/01/1969Depression Ygrelmigy16/01/1969Hepatitis C Hzhybsadp10/01/1969DTaP,Tdap,Td Vaccine (1 - Tdap)1969Mammogram Jyawldojh88/01/1991CT Abecpgzxvixi05/01/1996Cologuard (FIT-DNA)08/18/19953609Ahpikceugfn97/01/1996Colorectal Cancer Dodmjsksm66/01/1996 Fecal Occult Blood08/18/19959369Xzcblvoqnibkk92/01/1996Pneumococcal Vaccine: 50+ (1 of 1 - PCV)2000Bone Density Xitxzcgco56/01/2016Shingrix Vaccine (2 of 3) Diabetes Gkfrdrggk07, 04/06/2019, 03/20/2018, Additional history existsLipid Mvqxaszhu63, 01/02/2018, 04/28/2015dvance Directive Dcebzoqein71/01/2025ovid-19 Vaccine ( - 2024- season)2025Influenza Vaccine (#1)2025RSV Vaccine (1 - 1- dose 75+ series)2025 Procedures Procedure NamePriorityDate/TimeAssociated DiagnosisCommentsCOMPREHENSIVE METABOLIC RZLRYRjl67/19/2019 8:33 AM EST LIPID PANEL, WQTINCJFoc25/19/2019 8:33 AM EST from Last 3 Months or Most Recently Relevant to Health Maintenance Results * (ABNORMAL) LIPID PANEL BASIC (04/06/2019 8:33 AM EST)ComponentValueRef Range Test MethodAnalysis TimePerformed AtPathologist SignatureCholesterol, Xqxtc297 (H)<200 mg/dL04/06/2019 11:41 PM [facility] LaboratoriesComment: <200 mg/dL, Desirable 200-239 mg/dL, Borderline high >239 mg/dL, High Cowttdohesdz31<150 mg/dL04/06/2019 11:41 PM [facility] Comment: <150 mg/dL, Normal 150-199 mg/dL, Borderline high 200-499 mg/dL, High >499 mg/dL, Very high HDL Qbfhzhhvqnf61>39 mg/dL04/06/2019 11:41 PM [facility] Comment: 40-59 mg/dL, Acceptable >59 mg/dL, High: Negative risk factor for coronary heart disease <40 mg/dL, Low: Positive risk factor for coronary heart disease LDL Cholesterol, Axnzmcctla475(H)<100 mg/dL04/06/2019 11:41 PM [facility] LaboratoriesComment: <100 mg/dL, Optimal 100-129 mg/dL, Near optimal/above optimal 130-159 mg/dL, Borderline high 160-189 mg/dL, High >189 mg/dL, Very high Secondary prevention optimal LDL Cholesterol levels are recommended to be < 70 mg/dL Non HDL Zqzugfwqzyj555(H)<130 mg/dL04/06/2019 11:41 PM [facility] LaboratoriesComment: <130 mg/dL, Optimal 130-159 mg/dL, Near optimal/above optimal 160-189 mg/dL, Borderline high 190-219 mg/dL, High >219 mg/dL, Very high Secondary prevention optimal non HDL Cholesterol levels are recommended to be < 100 mg/dL Fasting LuedVuwtpzcyge19/19/2019 5:19 PM [facility] LaboratoriesVLDL Syvfqgocqbt08<30 mg/dL04/06/2019 11:41 PM [facility] LaboratoriesTC:HDL Ratio4.04<5.10106/06/2018 11:41 PM [facility] Ratio 2.74(H)<2.5404/06/2019 11:41 PM [facility] LaboratoriesComment: Reference: 1. National Cholesterol Education Program ATP III Guideline At-A-Glance Quick Desk Reference: National Heart, Lung, and Blood Watkins. National Institutes of Health. 2001: NIH Publication No. 01-3305. 2. An International Atherosclerosis Society position paper: global recommendations for the management of dyslipidemia: executive summary, Atherosclerosis. 2014: 232(2):410-413. Specimen (Source)Anatomical Location / LateralityCollection Method / Volume Collection TimeReceived Time04/06/2019 8:33 AM EST04/06/2019 3:01 PM EST Narrative Authorizing ProviderResult TypeResult StatusCcf ProviderLABORATORYFinal Result Performing OrganizationAddressCity/State/ZIP CodePhone Number [facility] [address] [place] [address] [facility] [address] [place] [address] * (ABNORMAL) COMP METABOLIC PANEL (04/06/2019 8:33 AM EST)ComponentValueRef RangeTest MethodAnalysis TimePerformed AtPathologist SignatureProtein, Total 6.86.3 - 8.0 g/dL04/06/2019 11:41 PM [facility] LaboratoriesAlbumin 3.93.9 - 4.9 g/dL04/06/2019 11:41 PM [facility] LaboratoriesCalcium 9.48.5 - 10.2 mg/dL04/06/2019 11:41 PM [facility] Bilirubin, Total0.20.2 - 1.3 mg/dL04/06/2019 11:41 PM [facility] LaboratoriesAlkaline Pigisopjctu035(H)34 - 123 U/L106/06/2018 11:41 PM [facility] BwznbwkiazetAES7892 - 35 U/L106/06/2018 11:41 PM [facility] VdvpuclhwoxcJzamctv1710 - 99 mg/dL04/06/2019 11:41 PM [facility] LaboratoriesComment: The [place] Diabetes Association (ADA) provides guidance for cutoff [...] Standards of Medical Care in Diabetes 2016, [place] [employer] Association. Diabetes Care. 2016.39(Suppl 1). KQU995 - 21 mg/dL04/06/2019 11:41 PM [facility] LaboratoriesCreatinine 0.830.58 - 0.96 mg/dL04/06/2019 11:41 PM [facility] LaboratoriesSodium 275658 - 144 mmol/L106/06/2018 11:41 PM [facility] LaboratoriesPotassium 4.93.7 - 5.1 mmol/L106/06/2018 11:41 PM [facility] LaboratoriesChloride 89439 - 105 mmol/L106/06/2018 11:41 PM [facility] HnzmiywtvdhsSA88848 - 30 mmol/L106/06/2018 11:41 PM [facility] LaboratoriesAnion Gap8(L)9 - 18 mmol/L106/06/2018 11:41 PM [facility] GduvodomgaoiNKZ003 - 38 U/L 04/06/2019 11:41 PM [facility] LaboratorieseGFR->60 04/06/2019 11:41 PM [facility] LaboratorieseGFR-All Other Races>60. 04/06/2019 11:41 PM [facility] LaboratoriesComment: eGFR (Estimated GFR) Units of measure: mL/min/1.73 [...] eGFR may not accurately reflect actual GFR. Specimen (Source)Anatomical Location / LateralityCollection Method / Volume Collection TimeReceived Time04/06/2019 8:33 AM EST04/06/2019 3:01 PM EST Narrative Authorizing ProviderResult TypeResult StatusCcf ProviderLABORATORYFinal Result Performing OrganizationAddressCity/State/ZIP CodePhone Number [facility] [address] [place] [address] [facility] [address] [place] [address] from Last 3 Months or Most Recently Relevant to Health Maintenance Insurance
== END 2025-04-04 07:30 | disposition home or self-care (01) ==
LOC: MAMMO 07:29
PROVIDERS: PCP Nurse Practitioner Family; Visit Provider Nurse Practitioner Family
DX: Z12.31 Encounter for screening mammogram for malignant neoplasm of breast (principal); Z80.1 Family history of malignant neoplasm of trachea, bronchus and lung
CPT/HCPCS: 77063; 77067